=== PATIENT | male | born 1975 | race Caucasian/White ===

== ENCOUNTER 2016-07-22 14:09 | Emergency (ER) | payer MEDICAID ==
--- NOTE | 2016-07-22 15:05 | ED ---
Upper Extremity Pain - HPI Summary HPI Summary: Patient presents with left middle finger pain that began when he caught it in a latch on a door he was opening 6 days ago. 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 He denies previous injury to this finger. No N/T or skin disruption. He has taken ibuprofen for pain. - History of Current Complaint Chief Complaint: EDExtremityLower Stated Complaint: LT HAND FINGER INJURY Time Seen by Provider: 07/22/16 14:22 Hx Obtained From: Patient Mechanism Of Injury: Twisted Onset/Duration: Started Days Ago - 6, Traumatic, Still Present Timing: Constant Severity Initially: Moderate Severity Currently: Severe Pain Location: Finger - left middle Character: Sharp, Aching Aggravating Factor(s): Movement Alleviating Factor(s): Nothing Associated Signs & Symptoms: Positive: Swelling, Bruising Related History: Dominant Hand Right - Allergies/Home Medications Allergies/Adverse Reactions: Allergies Allergy/AdvReac Type Severity Reaction Status Date / Time Penicillins Allergy Unknown Verified 07/22/16 14:13 Reaction Details PMH/Surg Hx/FS Hx/Imm Hx Previously Healthy: Yes Infectious Disease History: Denies: Traveled Outside the [place] in Last 30 Days - Family History Known Family History: Positive: None - Social History Occupation: Employed Full-time Lives: With Family Alcohol Use: None Substance Use Type: Reports: None Smoking Status (MU): Light Every Day Tobacco Smoker Cessation Counseling: Patient Advised to Stop Review of Systems Positive: Arthralgia - left DIP, Myalgia, Decreased ROM, Edema Positive: Bruising Negative: Weakness, Paresthesia, Numbness All Other Systems Reviewed And Are Negative: Yes Physical Exam Triage Information Reviewed: Yes Vital Signs On Initial Exam: Initial Vitals Temp Pulse Resp BP Pulse Ox 98.1 F 80 18 155/75 99 07/22/16 14:11 07/22/16 14:11 07/22/16 14:11 07/22/16 14:11 07/22/16 14:11 Vital Signs Reviewed: Yes Appearance: Positive: Well-Appearing, Well-Nourished, Pain Distress Skin: Positive: Warm, Skin Color Reflects Adequate Perfusion, Dry, Soft Head/Face: Positive: Normal Head/Face Inspection Eyes: Positive: EOMI, PREETHI, Conjunctiva Clear ENT: Positive: Hearing grossly normal Respiratory/Lung Sounds: Positive: Breath Sounds Present Cardiovascular: Positive: RRR Musculoskeletal: Positive: Limited @ - Left DIP limited to 10 flexion due to pain, Pain @ - TTP left DIP, Edema Left - left DIP Neurological: Positive: Sensory/Motor Intact, Alert, Oriented to Person Place, Time, NV Bundle Intact Distally, Normal Gait Psychiatric: Positive: Affect/Mood Appropriate AVPU Assessment: Alert Procedures - Splinting Location: left middle phalance Pre-Made Type: volar metal foam splint Splint: volar Pre-Proc Neuro Vasc Exam: normal Post-Proc Neuro Vasc Exam: normal Diagnostics - Vital Signs Vital Signs Temp Pulse Resp BP Pulse Ox 07/22/16 14:11 98.1 F 80 18 155/75 99 - Laboratory Lab Statement: Any lab studies that have been ordered have been reviewed, and results considered in the medical decision making process. - Radiology No standard instances Xray Interpretation: Positive (See Comments) Radiology Interpretation Completed By: Radiologist - Left middle distal phalanx fracture on the proximal portion with mild displacment Course/Dx - Diagnoses Differential Diagnosis/HQI/PQRI: Positive: Arthritis, Bursitis, Fracture (Closed ), Hematoma, Laceration, Strain, Sprain Provider Diagnoses: Fracture of phalanx of left middle finger Discharge - Discharge Plan Condition: Stable Disposition: HOME Patient Education Materials: Finger Fracture (ED) Referrals: Astrid Linder NP [Primary Care Provider] - Zeynep Stephenson MD [Medical Doctor] - Additional Instructions: Wear your splint at all times to protect your fracture. Elevate your hand above your heart and use ibuprofen 600mg three times daily with meals for the next 5- 7 days to decrease swelling and pain. Call Dr. Stephenson's office, with orthopedics , for an appointment in the next 3-5 days. Return to the emergency department if symptoms worsen.
--- NOTE | 2016-07-22 15:14 | RAD ---
INDICATION: Traumatic injury left third digit COMPARISON: None TECHNIQUE: AP, lateral, and oblique views were obtained. FINDINGS: There is a distracted (2 mm), intra-articular, volar plate avulsion injury of the base of the distal phalanx. There are no other fractures. There is no current flexion deformity. There is soft tissue swelling. IMPRESSION: DORSAL PLATE AVULSION FRACTURE AT THE DIP.
== END 2016-07-22 16:16 | disposition home or self-care (01) ==
LOC: ED 14:09
DX: S62.603A Fracture of unspecified phalanx of left middle finger, initial encounter for closed fracture (principal); M79.1 Myalgia; R60.9 Edema, unspecified; F17.210 Nicotine dependence, cigarettes, uncomplicated; W23.0XXA Caught, crushed, jammed, or pinched between moving objects, initial encounter; Y93.89 Activity, other specified; Y92.9 Unspecified place or not applicable
CPT/HCPCS: 73140; 99282

== ENCOUNTER 2016-08-16 08:57 | Emergency (ER) | payer MEDICAID, OTHER ==
[2016-08-16] MEDS ORDERED: oxyCODONE/Acetamin 5/325 MG* TAB PO ONE (09:24)
[2016-08-16] MEDS ORDERED: Dexamethasone IV* 4 MG/ML 5 ML VIAL (20 MG) IVPB ONE (09:24)
[2016-08-16] MEDS ORDERED: Orphenadrine Citrate IV* 30 MG/ML 2 ML VIAL IV ONE (09:24)
--- NOTE | 2016-08-16 09:26 | ED ---
Neck Pain - HPI Summary HPI Summary: 41M presents with neck pain and left arm numbness for day. States has chronic neck pain that normally radiates to right side but he used a massage device on Tuesday and then his symptoms seemed to switch to left side. He states that his left arm feels weak. The numbness is located in his thumb, index and middle finger and goes behind elbow. He is right handed. He denies any injury to the area. He denies any chest pain or SOB. - History of Current Complaint Chief Complaint: EDBackInjuryPain Stated Complaint: BACK PAIN, LEFT HAND NUMBNESS, ELBOW PAIN Time Seen by Provider: 08/16/16 09:10 Pain Intensity: 5 - Allergies/Home Medications Allergies/Adverse Reactions: Allergies Allergy/AdvReac Type Severity Reaction Status Date / Time Penicillins Allergy Unknown Verified 07/22/16 14:13 Reaction Details PMH/Surg Hx/FS Hx/Imm Hx Cardiovascular History: Denies: Hx Hypertension Musculoskeletal History: Reports: Other Musculoskeletal History - neck pain Infectious Disease History: Denies: Traveled Outside the [place] in Last 30 Days - Family History Known Family History: Positive: None Negative: Cardiac Disease - Social History Alcohol Use: None Substance Use Type: Reports: None Smoking Status (MU): Light Every Day Tobacco Smoker Review of Systems Negative: Fever Negative: Chest Pain Negative: Shortness Of Breath Positive: Myalgia - neck pain and left arm numbness All Other Systems Reviewed And Are Negative: Yes Physical Exam Triage Information Reviewed: Yes Vital Signs On Initial Exam: Initial Vitals Temp Pulse Resp BP Pulse Ox 98.3 F 99 18 144/83 100 08/16/16 09:01 08/16/16 09:01 08/16/16 09:01 08/16/16 09:01 08/16/16 09:01 Vital Signs Reviewed: Yes Appearance: Positive: Well-Appearing Skin: Positive: Warm, Dry Head/Face: Positive: Normal Head/Face Inspection Eyes: Positive: Normal, Conjunctiva Clear Respiratory/Lung Sounds: Positive: Clear to Auscultation, Breath Sounds Present Cardiovascular: Positive: Normal, RRR Musculoskeletal: Positive: Strength/ROM Intact - of neck with pain, Other - positive spurling test, 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 - CT neck CT Interpretation: Positive (See Comments) - IMPRESSION: No fracture of the cervical spine is noted. There is endplate abnormality superior endplate of C6. This appears to be chronic and was present on prior x-ray dated December 19, 2006. At C6-C7 in the left posterior lateral aspect of the disc space there is suggestion of some high density material which may represent a disc protrusion narrowing the left foramen and impinge upon the left exiting nerve root. Correlation with MRI of cervical spine is suggested. CT Interpretation Completed By: Radiologist Re-Evaluation - Re-Evaluation First Eval Re-Evaluation Time: 22:50 Change: Improved Comment: pain improved Neck Course/Dx - Course Course Of Treatment: 41M presents with acute on chronic neck pain for 2 days. states pain is in same area but that numbness that is usually on right is now on the left and goes down to thumb, index, and middle finger. on exam has positive spurling test. did CT and shows possible herniated disk at c6-c7 which fits with where numbness is occuring. pain controlled with steriod, muscle relaxer, and percocet. will have continue steriod and muscle relaxer at home and follow up with primary as may need PT or MRI in future. patient understands and agrees with plan - Diagnoses Differential Dx/HQI/PQRI: Positive: Sprain, Strain, Other - herniated disk Provider Diagnoses: Neck pain Discharge - Discharge Plan Condition: Good Disposition: HOME Prescriptions: Methocarbamol TAB* [Robaxin TAB*] 750 mg PO TID PRN #9 tab PRN Reason: Pain Methylprednisolone [Medrol Dosepak 4 MG*] 4 mg PO .SEE VALENTIN INSTRUCTION #1 packet Patient Education Materials: Neck Pain (ED) Referrals: Astrid Linder NP [Primary Care Provider] - Additional Instructions: Follow directions on package for Medrol pack Take muscle relaxers three times a day for 3 days Use ibuprofen or Tylenol for pain every 6 hours ice/heat area, move as much as possible Follow up with primary within 5 days Return to ED if unable to ambulate or develop any new or worsening symptoms
--- NOTE | 2016-08-16 10:00 | RAD ---
Indication: Neck pain, numbness on the left side. CT of the cervical spine was obtained in the axial plane. Sagittal and coronal reconstructed images were obtained. The skull base demonstrates no evidence of fracture. Mastoid air cells are well aerated. The C1 ring is intact. Degenerative changes of the atlantoaxial joint is noted. The vertebral bodies appear normal in height. No evidence of fracture is noted. C2-C3 there is no disc protrusion. No central foraminal stenosis is noted. At C3-C4 no disc protrusion is noted. No central or foraminal stenosis is noted. At C4-C5 no central or foraminal stenosis is noted. At C5-C6 degenerative disc disease is noted. No central or foraminal stenosis is noted. Some endplate irregularity is noted at the anterior superior endplate of C6. This is likely due to degeneration. This has been present as far back as 2006. At C6-C7 there is a left posterior lateral disc protrusion which may narrow the left foramen and impinge upon the left descending nerve root and exiting nerve root MRI is suggested for further evaluation. At C7-T1 no disc protrusion is identified. IMPRESSION: No fracture of the cervical spine is noted. There is endplate abnormality superior endplate of C6. This appears to be chronic and was present on prior x-ray dated December 19, 2006. At C6-C7 in the left posterior lateral aspect of the disc space there is suggestion of some high density material which may represent a disc protrusion narrowing the left foramen and impinge upon the left exiting nerve root. Correlation with MRI of cervical spine is suggested.
[2016-08-16 10:59] VITALS: BP 138/78
== END 2016-08-16 10:58 | disposition home or self-care (01) ==
LOC: ED 08:57
DX: M54.2 Cervicalgia (principal); F17.200 Nicotine dependence, unspecified, uncomplicated
CPT/HCPCS: 72125; 96374; 96375; 99282; A9270-GY; J2360

== ENCOUNTER 2016-08-27 04:32 | Emergency (ER) | payer OTHER ==
[2016-08-27 04:50] VITALS: BP 146/85
[2016-08-27] MEDS ORDERED: oxyCODONE/Acetamin 5/325 MG* TAB PO ONE (05:11)
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
== END 2016-08-27 05:34 | disposition home or self-care (01) ==
LOC: ED 04:32
DX: M25.512 Pain in left shoulder (principal); F17.210 Nicotine dependence, cigarettes, uncomplicated
CPT/HCPCS: 99282; A9270-GY

== ENCOUNTER 2017-01-06 06:20 | Observation (INO) | payer OTHER ==
[~2017-01-06 06:20] MED LIST: Acetaminophen TAB* 325 MG PO ONE; Buffered Lidocaine 0.9% SYRIN* 5 ML/SYR SYRINGE INTRADERM ONE; Dexamethasone IV* 4 MG/ML 1 ML (4 MG) IV SLOW PU ONE; Famotidine IV* 10 MG/ML 2 ML (20 mg) IV ONE
[2017-01-06] MEDS ORDERED: Famotidine IV* 10 MG/ML 2 ML (20 mg) ONE (06:30)
[2017-01-06] MEDS ORDERED: Buffered Lidocaine 0.9% SYRIN* 5 ML/SYR SYRINGE ONE (06:30)
[2017-01-06] MEDS ORDERED: Acetaminophen TAB* 325 MG ONE (06:30)
[2017-01-06] MEDS ORDERED: Clindamycin 900 MG IVPREMIX(* 900 MG/50 ML SDV IV ONE (06:30)
[2017-01-06] MEDS ORDERED: Dexamethasone IV* 4 MG/ML 1 ML (4 MG) ONE (06:30)
[2017-01-06] MEDS ORDERED: Midazolam* 1 MG/ML 2 ML VIAL (2 MG) ONE ×2 (07:05→07:49)
[2017-01-06] MEDS ORDERED: fentaNYL* 50 MCG/ML 2 ML VIAL (100 MCG VIAL) ONE ×3 (07:05→10:05)
[2017-01-06] MEDS ORDERED: Lidocaine 2% PF * 5 ML VIAL ONE (07:06)
[2017-01-06] MEDS ORDERED: Rocuronium* 10 MG/ML VIAL ONE (07:06)
[2017-01-06] MEDS ORDERED: Lidocaine 1% MPF wEPI 200,000* 30 ML SDV ONE (07:06)
[2017-01-06] MEDS ORDERED: Bacitracin IV* 50,000 UNITS INJ ONE (07:06)
[2017-01-06] MEDS ORDERED: Thrombin 5,000 UNITS* 1 APPLIC KIT - topical use - TOPICAL ONE ×2 (07:06→09:24)
[2017-01-06] MEDS ORDERED: Propofol* 10 MG/ML 20 ML BTL IV PUSH ONE (07:06)
[2017-01-06] MEDS ORDERED: Sugammadex * 200 MG/2 ML VIAL IV PUSH ONE (07:13)
[2017-01-06] MEDS ORDERED: KETAMINE HCL* 50 MG/ML 10 ML VIAL ONE (07:49)
[2017-01-06] MEDS ORDERED: HYDROmorphone INJ* 1 MG/ML CARPUJECT SYRINGE ONE ×2 (08:04→10:39)
[2017-01-06] MEDS ORDERED: Acetaminophen IV 1GM/100ML * 1,000 MG/100 ML VIAL IVPB ONE (08:10)
[2017-01-06] MEDS ORDERED: Acetaminophen IV 1GM/100ML * 0 ML ONE (08:12)
[2017-01-06] MEDS ORDERED: Ondansetron INJ* 2 MG/ML VIAL IV PRN ×2 (08:13→09:41)
[2017-01-06] MEDS ORDERED: diPHENhydraMINE IV* 50 MG/ML 1 ml VIAL (BENADRYL) IV PRN (08:13)
[2017-01-06] MEDS ORDERED: Phenylephrine IV* 40 MCG/ML 10 ML SYRINGE ONE ×2 (08:34→09:13)
[2017-01-06] MEDS ORDERED: Glycopyrrolate IV* 0.2 MG/ML 1 ML VIAL ONE (09:27)
[2017-01-06] MEDS ORDERED: Neostigmine Methylsulfate* 2 MG/2 ML SYRINGE ONE (09:27)
[2017-01-06] MEDS ORDERED: Acetaminophen IV 1GM/100ML * 100 ML ONE (09:34)
[2017-01-06] MEDS ORDERED: Cyclobenzaprine TAB* 10 MG PO PRN (09:44)
[2017-01-06] MEDS ORDERED: LORazepam TAB(*) 1 MG PO PRN (09:44)
[2017-01-06] MEDS: fentaNYL* 50 MCG/ML 2 ML VIAL (100 MCG VIAL) IV PRN ×3 (10:07→10:25)
--- NOTE | 2017-01-06 10:21 | RAD ---
INDICATION: Left posterior cervical discectomy C6-C7. COMPARISON: Correlation is made with a prior MRI of the cervical spine from August 26, 2016. TECHNIQUE: A single crosstable lateral film of the cervical spine was obtained in the operating room. FINDINGS: The next is flexed slightly. There are surgical instruments which project posteriorly at the C6-C7 level. IMPRESSION: INTRAOPERATIVE CONTROL FILMS.
[2017-01-06] MEDS: HYDROmorphone INJ* 1 MG/ML CARPUJECT SYRINGE IV PRN ×5 (10:42→11:19)
[2017-01-06] MEDS ORDERED: Nicotine GUM* 2 MG PO PRN (12:27)
[2017-01-06] MEDS: oxyCODONE/Acetamin 5/325 MG* TAB PO PRN ×2 (12:42→18:04)
[2017-01-06] MEDS: Nicotine PATCH 21 MG/24 HR* PATCH TRANSDERM SCH (12:43)
[2017-01-06] MEDS ORDERED: Acetaminophen TAB* 325 MG PO PRN (13:30)
[2017-01-06] MEDS: Amphetamine/Dextroamph ER(NF) 10 MG CAP.ER PO SCH (17:49)
[2017-01-07] MEDS: oxyCODONE/Acetamin 5/325 MG* TAB PO PRN ×3 (00:22→08:38)
[2017-01-07] MEDS ORDERED: Nicotine Patch Removal NOTE FOLLOW UP SCH (06:00)
[2017-01-07 06:19] VITALS: BP 134/79
--- NOTE | 2017-01-07 07:39 | PN ---
Progress Note - Progress Note Date of Service: 01/07/17 SOAP: Subjective: []POD # 1 Doing well Pre op arm pain relieved Objective: []Minimal drain output Neuro intact Assessment: []Satis post op course Plan: []D/C today D/C Instructions given
[2017-01-07] MEDS: Nicotine PATCH 21 MG/24 HR* PATCH TRANSDERM SCH (08:31)
[2017-01-07] MEDS: Amphetamine/Dextroamph ER(NF) 10 MG CAP.ER PO SCH (08:36)
[2017-01-07] MEDS ORDERED: Influenza VAC *QUAD* 2017-18* 0.5 ML SYRINGE IM ONE (09:00)
[2017-01-07] MEDS ORDERED: VARENICLINE 0.5 MG PO SCH (09:00)
[2017-01-07] MEDS ORDERED: VARENICLINE 1 MG PO SCH (09:00)
--- NOTE | 2017-01-08 07:27 | DS ---
DISCHARGE SUMMARY: DATE OF ADMISSION: 01/06/17 DATE OF DISCHARGE: 01/07/17 PROVIDER: Datne Aly MD * (DICTATED BY GRACE LERMA) DISCHARGE DIAGNOSES: 1. Cervical spondylosis, C6-7 on the left. 2. Depression. 3. Anxiety. 4. Opioid dependence. SPECIAL PROCEDURE: Posterior cervical foraminotomy, C6-7 on the left. HOSPITAL COURSE: This 41-year-old male was seen in the office several months ago with a cervical radiculopathy to the left side consistent with MRI findings of cervical disk disease and spondylosis at C6-7. He failed to improve over the next several months with conservative treatment and was admitted at this time for elective surgical treatment. On the day of admission, he was taken to surgery where under general anesthesia, a left posterior cervical foraminotomy at C6-7 operation was carried out. Postoperatively, the left upper extremity pain and numbness is improving. He is ambulating independently. He was eating , drinking, and voiding without difficulty. On the first postoperative day, the CARLOS wound drain was removed and he was discharged home to the care of his family. Prior to surgery, he had transitioned from Suboxone therapy to Percocet. Postoperatively, he will be prescribed 3 days of Percocet and will transition back to Suboxone therapy. Pain was well controlled during admission with Percocet. DISCHARGE INSTRUCTIONS: Wound care and activity level were discussed with the patient and information was provided. He was also provided with education and discussion on transitioning from oral pain medication to Suboxone. FOLLOWUP: He will be seen in office in approximately 2 weeks for followup and staple removal. DISCHARGE MEDICATIONS: 1. Oxycodone/acetaminophen 5/325 mg 2 tabs by mouth every 4 hours as needed for pain. 2. Cyclobenzaprine 10 mg 1 tab by mouth up to 3 times daily for muscle spasms. GRACE LERMA [id number]/[facility] #: [id number] MTDD
--- NOTE | 2017-01-10 09:32 | OP ---
DATE OF OPERATION: 01/06/17 - ROOM #352 DATE OF : 77. SURGEON: Dante Aly MD. WINE MAKER: GRACE Sharma. ANESTHESIA: General. PRE-OP DIAGNOSIS: Herniated nucleus pulposus, C6-7 on the left. POST-OP DIAGNOSIS: Cervical spondylosis at C6-7 on the left. OPERATIVE PROCEDURE: Posterior cervical foraminotomies, C6-7 on the left with microdissection. DESCRIPTION OF PROCEDURE: After satisfactory general anesthesia was obtained, the patient was placed on the operating table in a prone position with the chest supported on the chest rolls and the head maintained with slight neck flexed, we utilized Tucker headrest. The posterior cervical region was then clipped, prepped, and draped in a sterile manner for posterior cervical exposure and a skin incision outlined from C6-C7. This incision was infiltrated with 1% Xylocaine with epinephrine, after which it was turned down sharply to the cervical fascia. An intraoperative x-ray was obtained verifying localization of the C6 spinous process. The fascia was divided and the paraspinal muscle stripped away from the C6-7 level and a self-retaining retractor was placed to facilitate exposure. A partial hemilaminectomy was then carried out by removing the inferior aspect of the C6 lamina and the superior aspect of the C7 lamina, as well as a portion of the medial facet complex. This was done with Kerrison rongeurs. At this point in the procedure , the operating microscope was brought into the field and the remainder of the procedure was done under microscopic visualization. Projecting beneath the C7 nerve root was noted to be heaped up material which was quite firm. Multiple attempts were made to deliver any soft disk fragments, but none were noted. It was felt that the pathology was primarily a spurred disk complex that became somewhat calcified. A generous foraminotomy was carried out over the C7 nerve root such that it was free in its course. Hemostasis was obtained with temporary Gelfoam and after assuring adequate hemostasis, the wound was thoroughly irrigated, after which a piece of Gelfoam was placed over the laminectomy defects. A drain was placed in the epidural space and tunneled out toward the left side. The fascia was then reapproximated with 0 Vicryl suture. The subcutaneous tissue was closed with 3-0 Vicryl suture and the skin was closed with skin clips. The estimated blood loss was less than 50 mL and the final sponge, padding, and needle counts were correct. The patient was taken to the recovery room, extubated and in stable condition. [id number]/[facility] #: [id number] MTDBeth
== END 2017-01-07 10:10 | disposition home or self-care (01) ==
LOC: OR 06:20 → SSU 09:41
PROVIDERS: ADMIT Neurological Surgery; ATTEND Neurological Surgery
PROC: 01N10ZZ Release Cervical Nerve, Open Approach (ICD-10-PCS; 2017-01-06)
PROC: 0RB30ZZ Excision of Cervical Vertebral Disc, Open Approach (ICD-10-PCS; principal; 2017-01-06 07:45)
DX: M50.123 Cervical disc disorder at C6-C7 level with radiculopathy (principal); F11.20 Opioid dependence, uncomplicated; F32.9 Major depressive disorder, single episode, unspecified; F41.9 Anxiety disorder, unspecified; Z88.0 Allergy status to penicillin; F17.210 Nicotine dependence, cigarettes, uncomplicated
CPT/HCPCS: 72020; 96374; 96375; 96376; A9270-GY; G0378; J1100; J1170; J2001; J2250; J2405; J2704; J3010

== ENCOUNTER 2017-06-13 08:11 | Emergency (ER) | payer OTHER ==
[2017-06-13] MEDS ORDERED: Ketorolac INJ* 30 MG/ML 1 ML VIAL IM ONE (10:19)
--- NOTE | 2017-06-13 10:21 | ED ---
Upper Extremity Pain - HPI Summary HPI Summary: 42 male presents to ED with complaints of bilateral hand edema that began 3 days ago, worsened yesterday and this morning. Patient states he has chronic bilateral elbow pain that he believes is tendonitis. Has been wearing braces for the 8-9 months. Wears them even when he sleeps. Denies any other joint pain/ aches or swelling. No rash or discoloration. No fever/chills. No other complaints. No PMHx. 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 No known tick bites, rashes or other abnormal findings. Does have chronic neck pain/had surgery over last summer. Has not had recent issues with neck however. Has chronic paresthesia bilateral nothing new or significant. Denies numbness. Hands are stiff rather than painful, unable to garageman due to swelling that has worsened over the past few days. Has been elevating at times and took ibuprofen with last dose being around 630am today, 600mg. nothing since. No recent trauma or injury, old right hand trauma. - History of Current Complaint Chief Complaint: EDExtremityUpper Stated Complaint: WRIST/ARM SWELLING Time Seen by Provider: 06/13/17 08:48 Hx Obtained From: Patient Mechanism Of Injury: Unknown, Other - none Onset/Duration: Started Days Ago, Started Weeks Ago - "months ago chronic bilateral elbow pain", Still Present, Worse Since Timing: Constant Severity Initially: Mild Severity Currently: Mild Pain Location: Hand - bilateral Character: Aching, Stiffness Aggravating Factor(s): Nothing Alleviating Factor(s): Nothing Associated Signs & Symptoms: Positive: Swelling, Numbness/Tingling - chronic. Negative: Weakness, Neck Pain, Nausea, Vomiting Related History: Dominant Hand Right - Allergies/Home Medications Allergies/Adverse Reactions: Allergies Allergy/AdvReac Type Severity Reaction Status Date / Time Penicillins Allergy Unknown Verified 06/13/17 09:09 Reaction Details Home Medications: Home Medications Amphetamine MIXED SALT TAB* [Adderall TAB*] 20 mg PO DAILY 06/13/17 [History Confirmed 06/13/17] PMH/Surg Hx/FS Hx/Imm Hx Endocrine/Hematology History: Denies: Hx Diabetes Cardiovascular History: Denies: Hx Hypertension, Hx Pacemaker/ICD Respiratory History: Denies: Hx Asthma Musculoskeletal History: Reports: Other Musculoskeletal History - neck pain Sensory History: Denies: Hx Contacts or Glasses, Hx Hearing Aid Opthamlomology History: Denies: Hx Contacts or Glasses Psychiatric History: Reports: Hx Anxiety - on meds pt. states controlled, Hx Depression Denies: Hx Panic Disorder - Surgical History Surgery Procedure, Year, and Place: HERNIA - A BABY. THORACIC & LUMBAR - FOR FX - IN [facility] 2006 [facility] [place] Hx Anesthesia Reactions: No - Immunization History Date of Tetanus Vaccine: UTD Date of Influenza Vaccine: none Immunizations Up to Date: Yes Infectious Disease History: No Infectious Disease History: Denies: Traveled Outside the [place] in Last 30 Days - Family History Known Family History: Positive: None Negative: Cardiac Disease - Social History Alcohol Use: Occasionally Alcohol Amount: BEER X 3-4 twice a week Substance Use Type: Reports: None Substance Use Comment - Amount & Last Used: HX IV heroin abuse - 10 years clean Smoking Status (MU): Light Every Day Tobacco Smoker Review of Systems Constitutional: Negative Cardiovascular: Negative Respiratory: Negative Positive: Arthralgia - bilateral elbows, chronic , Myalgia, Edema - bilateral hands Positive: Paresthesia - chronic, intermittent b/l fingers All Other Systems Reviewed And Are Negative: Yes Physical Exam Triage Information Reviewed: Yes Vital Signs On Initial Exam: Initial Vitals Temp Pulse Resp BP Pulse Ox 98.2 F 92 16 138/74 100 06/13/17 08:15 06/13/17 08:15 06/13/17 08:15 06/13/17 08:15 06/13/17 08:15 Vital Signs Reviewed: Yes Appearance: Positive: Well-Appearing, No Pain Distress, Well-Nourished Skin: Positive: Warm, Skin Color Reflects Adequate Perfusion, Dry, Other - normal skin exam. Negative: Cold, Numb, Cyanosis @, Erythema @ Head/Face: Positive: Normal Head/Face Inspection Eyes: Positive: Conjunctiva Clear ENT: Positive: Pharynx normal Neck: Positive: Supple, Nontender Respiratory/Lung Sounds: Positive: Clear to Auscultation, Breath Sounds Present. Negative: Rales, Rhonchi, Wheezes Cardiovascular: Positive: Normal, RRR, Pulses are Symmetrical in both Upper and Lower Extremities - 2+ radial b/l. Negative: Murmur, Rub Musculoskeletal: Positive: Normal, Strength/ROM Intact - limited only due to swelling, Pain @ - minmal bilateral hands, elbows with movement, Edema Left - hand moderate, Edema Right - hand moderate, including fingers, Other - no crepitus, step off, deformity or other signs of trauma. no erythema or ecchymosis. negative tinel and phalen. Negative: Interruption @ Neurological: Positive: Normal, Sensory/Motor Intact, Alert, Oriented to Person Place, Time, CN Intact II-III, NV Bundle Intact Distally, Normal Gait Diagnostics - Vital Signs Vital Signs Temp Pulse Resp BP Pulse Ox 06/13/17 10:01 98.7 F 06/13/17 10:00 86 98 06/13/17 09:44 87 98 06/13/17 09:43 145/83 06/13/17 08:15 98.2 F 92 16 138/74 100 - Laboratory Lab Statement: Any lab studies that have been ordered have been reviewed, and results considered in the medical decision making process. - Radiology elbow b/l Xray Interpretation: No Acute Changes - NO EVIDENCE FOR LEFT ELBOW FRACTURE.No fracture of the right elbow is noted. Radiology Interpretation Completed By: Radiologist hand b/l Xray Interpretation: No Acute Changes - Degenerative changes of the distal interphalangeal joint of the third digit. No fracture is noted.No fractures identified. Deformity of the fourth and fifth metacarpals from prior injury. Radiology Interpretation Completed By: Radiologist Re-Evaluation - Re-Evaluation First Eval Re-Evaluation Time: 11:45 Change: Unchanged - toradol helped, swelling still present. evaluated by Dr Prado, updated on imaging results Course/Dx - Course Course Of Treatment: xrays of bilteral elbows and hands obtained and negative besides chronic/old deformity/injuries and degenerative changes. Given toradol. Appears to be suffering from bilteral hand edema probably from elbow braces being on 15/11 for the past few months and slightly to tight to compensate for chronic bilateral elbow tendonitis. Recommend strict RICE and anti-inflammatory along with removing elbow braces for the next few days. Aware of worsening signs and symptoms to watch out for. No other concerns at this time. Dr Prado also evaluated patient and agree. Patient agrees and understands plan. Continue NSAIDs. Lyme titer obtained although no risk factors or history. Follow up with PCP within 1 week for recheck. Follow up for chronic elbow pain for further evaluation. - Diagnoses Differential Diagnosis/HQI/PQRI: Positive: Strain, Other - tendonitis, bilateral hand edema Provider Diagnoses: Hand edema, Bilateral elbow joint pain, Tendonitis of both elbows - Physician Notifications Discussed Care of Patient With: Dr Prado Time Discussed With Above Provider: 11:30 Discharge - Discharge Plan Condition: Stable Disposition: HOME Prescriptions: Naproxen TAB* [Naprosyn 375 mg TAB*] 375 mg PO Q8H #10 tab Patient Education Materials: Tendinitis (ED), Edema (ED) Referrals: Astrid Linder NP [Primary Care Provider] - Additional Instructions: Take prescribed medication to help with pain and inflammation as directed. Take with food. Strict elevation, icing and keep elbow braces removed for the next couple of days 3-5. Follow up with PCP. Any new or worsening symptoms, as discussed, please return/seek medical attention promptly. You will hear about lyme results IF positive within the next week.
--- NOTE | 2017-06-13 11:18 | RAD ---
Indication: Right hand injury. 4 views of the right hand demonstrates deformity of the fifth metacarpal and fourth metacarpal. No fracture is identified. IMPRESSION: No fractures identified. Deformity of the fourth and fifth metacarpals from prior injury.
--- NOTE | 2017-06-13 11:22 | RAD ---
INDICATION: Left elbow injury. TECHNIQUE: 4 views of the left elbow were obtained. FINDINGS: The bones are in normal alignment. No joint effusion or fracture is seen. Joint spaces appear maintained. There is a small bony exostosis arising from the medial anterior aspect of the distal humerus. IMPRESSION: NO EVIDENCE FOR FRACTURE.
[2017-06-13 12:25] VITALS: BP 112/74
--- NOTE | 2017-06-13 12:29 | RAD ---
Indication: Right hand injury. 4 views of the right hand demonstrates no fracture. Degenerative changes of the distal interphalangeal joint of the third digit is noted. Accessory ossicle is noted adjacent to the ulnar styloid process. IMPRESSION: Degenerative changes of the distal interphalangeal joint of the third digit. No fracture is noted.
--- NOTE | 2017-06-13 12:30 | RAD ---
Indication: Right elbow swelling. 4 views of the right elbow demonstrates no fracture. No joint effusion is identified. IMPRESSION: No fracture of the right elbow is noted.
== END 2017-06-13 12:23 | disposition home or self-care (01) ==
LOC: ED 08:11
DX: R60.9 Edema, unspecified (principal); M25.522 Pain in left elbow; M25.521 Pain in right elbow; M77.9 Enthesopathy, unspecified; Z88.0 Allergy status to penicillin; F17.200 Nicotine dependence, unspecified, uncomplicated
CPT/HCPCS: 86618; 96372; 99283; J1885

== ENCOUNTER 2018-05-26 23:04 | Emergency (ER) | payer OTHER ==
[2018-05-26] MEDS ORDERED: Clindamycin CAP* 150 MG PO ONE (23:59)
--- NOTE | 2018-05-27 00:01 | ED ---
Throat Pain/Nasal Congestion - HPI Summary HPI Summary: 43 year old male presents with dental pain for the past couple days. He states located on this left upper jaw. States it radiates to his ear. Denies any pain with eye movement. He states the area feels swollen. He has been taking ibuprofen for pain which has been helping. Denies any sore throat nausea vomiting chest pain or shortness of breath. Has a history of recurrent dental infections in this area but has not followed up with a dentist yet. - History of Current Complaint Chief Complaint: EDDentalPain Time Seen by Provider: 05/26/18 23:50 - Allergies/Home Medications Allergies/Adverse Reactions: Allergies Allergy/AdvReac Type Severity Reaction Status Date / Time Penicillins Allergy Unknown Verified 05/26/18 23:11 Reaction Details PMH/Surg Hx/FS Hx/Imm Hx Endocrine/Hematology History: Denies: Hx Diabetes Cardiovascular History: Denies: Hx Hypertension, Hx Pacemaker/ICD Respiratory History: Denies: Hx Asthma Musculoskeletal History: Reports: Other Musculoskeletal History - neck pain Sensory History: Denies: Hx Contacts or Glasses, Hx Hearing Aid Opthamlomology History: Denies: Hx Contacts or Glasses Psychiatric History: Reports: Hx Anxiety - on meds pt. states controlled, Hx Depression Denies: Hx Panic Disorder - Surgical History Surgery Procedure, Year, and Place: HERNIA - A BABY. THORACIC & LUMBAR - FOR FX - IN [facility] [place] [facility] [place] Anesthesia Reactions: No - Immunization History Date of Tetanus Vaccine: UTD Date of Influenza Vaccine: none Infectious Disease History: Yes Infectious Disease History: Denies: Traveled Outside the [place] in Last 30 Days - Family History Known Family History: Positive: None Negative: Cardiac Disease - Social History Alcohol Use: Occasionally Alcohol Amount: BEER X 3-4 twice a week Substance Use Type: Reports: None Substance Use Comment - Amount & Last Used: HX IV heroin abuse - 10 years clean Smoking Status (MU): Light Every Day Tobacco Smoker Review of Systems Negative: Fever Positive: Dental Pain Negative: Chest Pain Negative: Shortness Of Breath All Other Systems Reviewed And Are Negative: Yes Physical Exam Triage Information Reviewed: Yes Vital Signs On Initial Exam: Initial Vitals Temp Pulse Resp BP Pulse Ox 97.2 F 88 16 161/97 98 05/26/18 23:05 05/26/18 23:05 05/26/18 23:05 05/26/18 23:05 05/26/18 23:05 Vital Signs Reviewed: Yes Appearance: Positive: Well-Appearing Skin: Positive: Warm, Dry Head/Face: Positive: Normal Head/Face Inspection Eyes: Positive: Normal, EOMI, PREETHI, Conjunctiva Clear ENT: Positive: Normal ENT inspection, Pharynx normal, TMs normal Dental: Positive: Percussion Tenderness @ - 3, Gross Decay/Caries @ - 3 with erythema. Negative: Abscess @ Neck: Positive: Supple, Nontender, No Lymphadenopathy Respiratory/Lung Sounds: Positive: Clear to Auscultation, Breath Sounds Present Cardiovascular: Positive: Normal, RRR Abdomen Description: Positive: Nontender, Soft Bowel Sounds: Positive: Present Musculoskeletal: Positive: Normal Neurological: Positive: Normal Psychiatric: Positive: Normal Diagnostics - Vital Signs Vital Signs Temp Pulse Resp BP Pulse Ox 05/26/18 23:05 97.2 F 88 16 161/97 98 - Laboratory Lab Statement: Any lab studies that have been ordered have been reviewed, and results considered in the medical decision making process. EENT Course/Dx - Course Course Of Treatment: 43 year old male presents with dental pain for the past couple days. He states located on this left upper jaw. States it radiates to his ear. Denies any pain with eye movement. He states the area feels swollen. He has been taking ibuprofen for pain which has been helping. Denies any sore throat nausea vomiting chest pain or shortness of breath. Has a history of recurrent dental infections in this area but has not followed up with a dentist yet. On exam tenderness over tooth 3 with erythema around the tooth. Will start on clindamycin. Told to follow up with dentist for further care. Patient understands agrees with plan. - Differential Diagnoses Differential Diagnoses: Dental Abscess, Dental Caries, Fractured Tooth - Diagnoses Provider Diagnoses: Dental infection Discharge - Sign-Out/Discharge Documenting (check all that apply): Patient Departure Patient Received Moderate/Deep Sedation with Procedure: No - Discharge Plan Condition: Good Disposition: HOME Prescriptions: Clindamycin Cap(NF) [Clindamycin Cap 300 mg Cap(NF)] 300 mg PO TID #20 cap Patient Education Materials: Dental Abscess (ED) Referrals: Makayla Sweet MD [Primary Care Provider] - Additional Instructions: Take clindamycin three times a day for 7 days Take ibuprofen every 6 hours for pain as needed Avoid hard, crunchy food until seen by dentist Return to ED if develop fever, shortness of breath, pain with eye movement or swelling around eye Establish care dentist as soon as possible - Billing Disposition and Condition Condition: GOOD Disposition: Home Images - Images Dental: 1 - broken tooth with erythema
[2018-05-27 00:22] VITALS: BP 124/88
== END 2018-05-27 00:16 | disposition home or self-care (01) ==
LOC: ED 23:04
DX: K04.7 Periapical abscess without sinus (principal); K02.9 Dental caries, unspecified; F41.9 Anxiety disorder, unspecified; Z88.0 Allergy status to penicillin; F17.200 Nicotine dependence, unspecified, uncomplicated
CPT/HCPCS: 99282; A9270-GY

== ENCOUNTER 2018-07-14 09:20 | Emergency (ER) | payer OTHER ==
[2018-07-14 10:35] VITALS: BP 132/81
--- NOTE | 2018-07-14 10:53 | ED ---
Laceration/Wound HPI - HPI Summary HPI Summary: Patient is a 43-year-old male presenting to the ED with a laceration to the left hand. The laceration occurred last evening at 5:30 PM while cutting a piece of steel. Tetanus UTD as of 2 yrs ago. Denies pain at this time. Bleeding is well controlled. Denies any N/T to the fingertips. Denies other injuries. - History of Current Complaint Stated Complaint: LEFT HAND LACERATION PER PT Time Seen by Provider: 07/14/18 09:35 Hx Obtained From: Patient Mechanism of Injury: Sharp/Blunt Trauma Onset/Duration: Sudden Onset Aggravating: Movement Alleviating: Compression Timing: Constant Onset Severity: Mild Current Severity: Mild Pain Intensity: 0 Pain Scale Used: 0-10 Numeric Associated Signs & Symptoms: Negative Related Hx: Dominant Hand (Right) - Additional Pertinent History Primary Care Physician: [id number] Oxygen Devices Used Prior to Hospitalization: None Recent Stress Test: No Have you ever had this problem before: No - Allergy/Home Medications Allergies/Adverse Reactions: Allergies Allergy/AdvReac Type Severity Reaction Status Date / Time Penicillins Allergy Unknown Verified 07/14/18 09:37 Reaction Details PMH/Surg Hx/FS Hx/Imm Hx Previously Healthy: Yes Endocrine/Hematology History: Denies: Hx Diabetes Cardiovascular History: Denies: Hx Hypertension, Hx Pacemaker/ICD Respiratory History: Denies: Hx Asthma Musculoskeletal History: Reports: Other Musculoskeletal History - neck pain Sensory History: Denies: Hx Contacts or Glasses, Hx Hearing Aid Opthamlomology History: Denies: Hx Contacts or Glasses Psychiatric History: Reports: Hx Anxiety - on meds pt. states controlled, Hx Depression Denies: Hx Panic Disorder - Surgical History Surgery Procedure, Year, and Place: HERNIA - A BABY. THORACIC & LUMBAR - FOR FX - IN [facility] 2006 [facility] [place] Hx Anesthesia Reactions: No - Immunization History Date of Tetanus Vaccine: UTD Date of Influenza Vaccine: none Hx Pertussis Vaccination: No Immunizations Up to Date: Yes Infectious Disease History: No Infectious Disease History: Denies: Traveled Outside the [place] in Last 30 Days - Family History Known Family History: Positive: None Negative: Cardiac Disease - Social History Occupation: Employed Full-time Lives: With Family Alcohol Use: Occasionally Alcohol Amount: BEER X 3-4 twice a week Hx Substance Use: No Substance Use Type: Reports: None Substance Use Comment - Amount & Last Used: HX IV heroin abuse - 11 years clean Hx Tobacco Use: Yes Smoking Status (MU): Heavy Every Day Tobacco Smoker Review of Systems Constitutional: Negative Negative: Fever, Chills, Skin Diaphoresis Negative: Palpitations, Chest Pain Genitourinary: Negative Positive: no symptoms reported, see HPI Negative: Arthralgia, Myalgia Skin: Negative Positive: Other - laceration to the dorsum of the hand Neurological: Negative All Other Systems Reviewed And Are Negative: Yes Physical Exam Triage Information Reviewed: Yes Vital Signs On Initial Exam: Initial Vitals Temp Pulse Resp BP Pulse Ox 98.2 F 81 18 133/98 98 07/14/18 09:31 07/14/18 09:31 07/14/18 09:31 07/14/18 09:31 07/14/18 09:31 Vital Signs Reviewed: Yes Appearance: Positive: Well-Appearing, Well-Nourished Skin: Positive: Warm, Skin Color Reflects Adequate Perfusion, Other - laceration to the dorsum of the hand Head/Face: Positive: Normal Head/Face Inspection Eyes: Positive: EOMI, PREETHI, Conjunctiva Clear Neck: Positive: Supple, No Lymphadenopathy Respiratory/Lung Sounds: Positive: Clear to Auscultation, Breath Sounds Present Cardiovascular: Positive: RRR, Pulses are Symmetrical in both Upper and Lower Extremities Musculoskeletal: Positive: Strength/ROM Intact Neurological: Positive: Speech Normal Psychiatric: Positive: Affect/Mood Appropriate AVPU Assessment: Alert Procedures - Laceration/Wound Repair 1 Location: upper extremity Description: Irregular Anesthesia: 1.0% Length, Depth and Shape: 2cm, irregular Betadine Prep?: No Irrigated w/ Saline (ccs): 40 Laceration/Wound Explored: clean Closure: Skin Adhesive, SteriStrips Layer Closure?: No Sterile Dressing Applied?: No Diagnostics - Vital Signs Vital Signs Temp Pulse Resp BP Pulse Ox 07/14/18 10:34 98.2 F 84 18 132/81 97 07/14/18 09:31 98.2 F 81 18 133/98 98 - Laboratory Lab Statement: Any lab studies that have been ordered have been reviewed, and results considered in the medical decision making process. Laceration Repair Course/Dx - Course Course Of Treatment: Patient is evaluated for 2 cm laceration to the dorsum of the left hand. This is superficial. This occurred approximately 5:30 PM last evening, approximately 16 hours ago. Cleansed wound thoroughly with normal saline. Adhesive applied, 3 Steri-Strips applied. Patient will keep the area covered x 3 days. - Clinical Impression Provider Diagnoses: Laceration Discharge - Sign-Out/Discharge Documenting (check all that apply): Patient Departure Patient Received Moderate/Deep Sedation with Procedure: No - Discharge Plan Condition: Stable Disposition: HOME Patient Education Materials: Melody (ED) Referrals: Makayla Sweet MD [Primary Care Provider] - Additional Instructions: Keep the steri strips in place x 3-4 days Keep the hand wrapped - Billing Disposition and Condition Condition: STABLE Disposition: Home
== END 2018-07-14 10:34 | disposition home or self-care (01) ==
LOC: ED 09:20
DX: S61.412A Laceration without foreign body of left hand, initial encounter (principal); W45.8XXA Other foreign body or object entering through skin, initial encounter; Y92.9 Unspecified place or not applicable; F41.9 Anxiety disorder, unspecified; Z88.0 Allergy status to penicillin; F17.200 Nicotine dependence, unspecified, uncomplicated
CPT/HCPCS: 12001; 99282

== ENCOUNTER → 2018-08-18 10:47 | Emergency (ER) | payer OTHER ==
[2018-08-18 11:05] VITALS: BP 150/90
--- NOTE | 2018-08-18 11:24 | ED ---
Upper Extremity Pain - HPI Summary HPI Summary: Patient is a 43-year-old male who presents emergency department for evaluation of a right crush injury to his arm. 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 No other injuries were sustained. Patient complains of pain to right elbow and forearm as well as intermittent paresthesias to right arm. Symptoms are mild to moderate in severity. Movement makes symptoms worse. Rest makes symptoms better. Patient took ibuprofen prior to arrival which is improving pain. No past medical history. - History of Current Complaint Chief Complaint: EDExtremityUpper Stated Complaint: WRIST INJURY PER PT Time Seen by Provider: 08/18/18 11:20 Hx Obtained From: Patient - Allergies/Home Medications Allergies/Adverse Reactions: Allergies Allergy/AdvReac Type Severity Reaction Status Date / Time Penicillins Allergy Unknown Verified 08/18/18 11:05 Reaction Details PMH/Surg Hx/FS Hx/Imm Hx Previously Healthy: Yes Endocrine/Hematology History: Denies: Hx Diabetes Cardiovascular History: Denies: Hx Hypertension, Hx Pacemaker/ICD Respiratory History: Denies: Hx Asthma Musculoskeletal History: Reports: Other Musculoskeletal History - neck pain Sensory History: Denies: Hx Contacts or Glasses, Hx Hearing Aid Opthamlomology History: Denies: Hx Contacts or Glasses Psychiatric History: Reports: Hx Anxiety - on meds pt. states controlled, Hx Depression Denies: Hx Panic Disorder - Surgical History Surgery Procedure, Year, and Place: HERNIA - A BABY. THORACIC & LUMBAR - FOR FX - IN [facility] 2006 [facility] [place] Hx Anesthesia Reactions: No - Immunization History Date of Tetanus Vaccine: UTD Date of Influenza Vaccine: none Infectious Disease History: No Infectious Disease History: Denies: Traveled Outside the [place] in Last 30 Days - Family History Known Family History: Positive: None, Non-Contributory Negative: Cardiac Disease - Social History Occupation: Employed Full-time Lives: With Family Alcohol Use: Occasionally Alcohol Amount: BEER X 3-4 twice a week Hx Substance Use: No Substance Use Type: Reports: None Substance Use Comment - Amount & Last Used: HX IV heroin abuse - 11 years clean Hx Tobacco Use: Yes Smoking Status (MU): Heavy Every Day Tobacco Smoker Review of Systems Cardiovascular: Negative Respiratory: Negative Gastrointestinal: Negative Positive: Other - right arm pain Skin: Negative Positive: Paresthesia. Negative: Weakness, Numbness All Other Systems Reviewed And Are Negative: Yes Physical Exam Triage Information Reviewed: Yes Vital Signs On Initial Exam: Initial Vitals Temp Pulse Resp BP Pulse Ox 98.6 F 95 16 150/90 98 08/18/18 11:00 08/18/18 11:00 08/18/18 11:00 08/18/18 11:00 08/18/18 11:00 Vital Signs Reviewed: Yes Appearance: Positive: Well-Appearing - Pt. sitting on bed in NAD Skin: Positive: Warm, Dry Head/Face: Positive: Normal Head/Face Inspection Eyes: Positive: Normal, EOMI Neck: Positive: Supple Musculoskeletal: Positive: Other - Mild soft tissue swelling to right forearm. A few minor superficial abrasion. Pain with palpation and rotation at elbow. No wrist or hand pain .Good radial pulse. Compartments are soft. Neurological: Positive: Normal, CN Intact II-III Psychiatric: Positive: Affect/Mood Appropriate Diagnostics - Vital Signs Vital Signs Temp Pulse Resp BP Pulse Ox 08/18/18 11:00 98.6 F 95 16 150/90 98 - Laboratory Lab Statement: Any lab studies that have been ordered have been reviewed, and results considered in the medical decision making process. Course/Dx - Course Course Of Treatment: Patient presenting for evaluation of a crush injury to his right arm. He is neurovascularly intact. No sensory deficits. No evidence of compartment syndrome. X-rays were ordered to rule out fracture. After I initially evaluated patient, he eloped from the ER. No x-rays were obtained. - Diagnoses Differential Diagnosis/HQI/PQRI: Positive: Fracture (Closed), Strain, Sprain Provider Diagnoses: Crush injury of arm Discharge - Sign-Out/Discharge Documenting (check all that apply): Patient Departure Patient Received Moderate/Deep Sedation with Procedure: No - Discharge Plan Condition: Stable Disposition: ELOPEMENT Referrals: Makayla Sweet MD [Primary Care Provider] - - Billing Disposition and Condition Condition: STABLE Disposition: Elopement
== END | disposition home or self-care (01) ==
LOC: ED 10:47
DX: S57.81XA Crushing injury of right forearm, initial encounter (principal); W22.8XXA Striking against or struck by other objects, initial encounter; Y92.63 Factory as the place of occurrence of the external cause; Y99.0 Civilian activity done for income or pay; Z88.0 Allergy status to penicillin; F41.9 Anxiety disorder, unspecified; Z72.0 Tobacco use; Z53.21 Procedure and treatment not carried out due to patient leaving prior to being seen by health care provider
CPT/HCPCS: 99282

== ENCOUNTER 2019-03-13 20:22 | Emergency (ER) | payer OTHER ==
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
[2019-03-13 21:39] VITALS: BP 0/0
--- NOTE | 2019-03-14 07:52 | ED ---
Imaging and Labs Follow Up Follow Up Type: Imaging Imaging Result: IMPRESSION: EQUIVOCAL LUCENCY ALONG THE LATERAL HEAD OF THE FIFTH PROXIMAL PHALANX. CORRELATE WITH POINT TENDERNESS. Patient Communication/Plan: called and left vm of potential fracture. explained to fam tape area and weight bear as tolerated Provider Diagnoses: Foot sprain
== END 2019-03-13 21:38 | disposition home or self-care (01) ==
LOC: ED 20:22
DX: S93.602A Unspecified sprain of left foot, initial encounter (principal); X58.XXXA Exposure to other specified factors, initial encounter; Y92.9 Unspecified place or not applicable; F41.9 Anxiety disorder, unspecified; F32.9 Major depressive disorder, single episode, unspecified; F17.200 Nicotine dependence, unspecified, uncomplicated; Z79.899 Other long term (current) drug therapy; Z88.0 Allergy status to penicillin
CPT/HCPCS: 99282

== ENCOUNTER 2020-06-03 10:34 | Inpatient (IN) ==
[2020-06-03] MEDS ORDERED: Ondansetron 4 mg VIAL 2 MG/ML 2 ml VIAL IV ONE (10:46)
[2020-06-03] MEDS ORDERED: NS 0.9% 1000 ml BAG 1,000 ML IV ONE (10:46)
[2020-06-03] MEDS ORDERED: Famotidine IV 10 MG/ML 2 ml VIAL (20 mg) IV SLOW PU ONE (10:47)
[2020-06-03] MEDS ORDERED: Thiamine 100 MG/ML 2 ml VIAL 100 MG, Folic Acid 1 MG, Multiple Vitamin IV ADULT 10 ML i... IV ONE (10:47)
[2020-06-03 11:24] LABS: ABS Basophils 0.1 10^3/ul (0-0.2); ABS Eosinophils 0.1 10^3/ul (0-0.6); ABS Lymphocytes 1.2 10^3/ul (1.0-4.8); ABS Monocytes 0.5 10^3/ul (0-0.8); ABS Neutrophils 3.1 10^3/ul (1.5-7.7); Eosinophil % 2.4 %; Hematocrit 41 % (42-52); Hemoglobin 14.5 g/dL (14.0-18.0); Lymphocyte % 24.3 %; Mean Corpuscular HGB Conc 35 g/dL (31-36); Mean Corpuscular Hemoglobin 33 pg (27-31); Mean Corpuscular Volume 94 fL (80-94); Mean Platelet Volume 7.1 fL (7.4-10.4); Platelet Count 245 10^3/uL (150-450); Red Blood Count 4.35 10^6 /uL (4.18-5.48); Red Cell Distribution Width 14 % (10-15)
[2020-06-03 11:44] LABS: ALT 56 U/L (7-52); AST 73 U/L (13-39); Albumin 4.5 g/dL (3.2-5.2); Albumin/Globulin Ratio 1.5 (1-3); Alkaline Phosphatase 84 U/L (34-104); Anion Gap 9 mmol/L (2-11); BUN/Creatinine Ratio 16.2 (8-20); Blood Urea Nitrogen 12 mg/dL (6-24); CO2 Carbon Dioxide 27 mmol/L (22-32); Calcium 9.3 mg/dL (8.6-10.3); Chloride 100 mmol/L (101-111); EGFR Non-African American 114.9 (>60); Globulin 3.1 g/dL (2-4); Glucose 106 mg/dL (70-100); Lipase 233 U/L (11.0-82.0); Magnesium 1.7 mg/dL (1.9-2.7); Potassium 3.8 mmol/L (3.5-5.0); Sodium 136 mmol/L (135-145); Total Protein 7.6 g/dL (6.4-8.9)
[2020-06-03] MEDS ORDERED: Magnesium Sulfate 2 gm BAG 2 GM/50 ML BAG IVPB ONE (11:53)
[2020-06-03 12:26] LABS: Alcohol, S < 10 mg/dL (<10)
[2020-06-03 12:57] LABS: Urine Appearance Clear; Urine Bilirubin Negative (Negative); Urine Blood Negative (Negative); Urine Color Yellow; Urine Glucose Negative (Negative); Urine Ketones Trace (Negative); Urine Nitrite Negative (Negative); Urine Protein 1+(30 mg/dL) (Negative); Urine Specific Gravity 1.025 (1.010-1.030); Urine Urobilinogen Negative (Negative)
[2020-06-03] MEDS ORDERED: Morphine 4 MG/ML VIAL (1 ml) IV ONE (13:05)
[2020-06-03 13:17] LABS: Urine Bacteria Absent (Absent); Urine Red Blood Cell Trace(0-2/hpf) (Absent); Urine Squamous Epithelial Cell Present (Absent); Urine White Blood Cell Trace(0-5/hpf) (Absent)
[2020-06-03] MEDS ORDERED: NS 0.9% 1000 ml BAG 1,000 ML IV SCH (15:00)
[2020-06-03] MEDS ORDERED: Ondansetron 4 mg VIAL 2 MG/ML 2 ml VIAL IV PRN (15:35)
[2020-06-03] MEDS ORDERED: Nicotine PATCH 14 MG/24 HR PATCH TRANSDERM ONE (16:00)
[2020-06-03] MEDS: Lactated Ringers 1000 ml BAG 1,000 ML IV SCH (17:21)
[2020-06-03] MEDS ORDERED: Morphine 2 MG/ML SYRINGE IV PRN (20:37)
[2020-06-03] MEDS ORDERED: Famotidine IV 10 MG/ML 2 ml VIAL (20 mg) IV SLOW PU SCH (21:00)
[2020-06-03] MEDS: Buprenorp/Nalox 8-2 MG FILM SL FILM SCH (21:04)
[2020-06-04 05:37] LABS: ABS Eosinophils 0.1 10^3/ul (0-0.6); ABS Lymphocytes 1.3 10^3/ul (1.0-4.8); ABS Monocytes 0.4 10^3/ul (0-0.8); Eosinophil % 3.7 %; Hematocrit 39 % (42-52); Lymphocyte % 33.6 %; Mean Corpuscular HGB Conc 34 g/dL (31-36); Mean Corpuscular Hemoglobin 33 pg (27-31); Mean Corpuscular Volume 97 fL (80-94); Mean Platelet Volume 7.2 fL (7.4-10.4); Platelet Count 210 10^3/uL (150-450); Red Blood Count 4.01 10^6 /uL (4.18-5.48); Red Cell Distribution Width 13 % (10-15)
[2020-06-04 05:55] LABS: BUN/Creatinine Ratio 11.4 (8-20); EGFR Non-African American 122.5 (>60); Potassium 3.8 mmol/L (3.5-5.0)
[2020-06-04 05:56] LABS: Albumin/Globulin Ratio 1.4 (1-3); Calcium 8.9 mg/dL (8.6-10.3); EGFR African American 148.2 (>60); Globulin 2.9 g/dL (2-4); HDL Cholesterol 140.8 mg/dL; Total Bilirubin 0.6 mg/dL (0.2-1.0); Total Protein 6.9 g/dL (6.4-8.9)
[2020-06-04] MEDS: Pantoprazole VIAL 40 MG VIAL IV SCH ×2 (09:19→20:07)
[2020-06-04] MEDS: Buprenorp/Nalox 8-2 MG FILM SL FILM SCH ×3 (09:19→20:07)
[2020-06-04] MEDS: Nicotine PATCH 14 MG/24 HR PATCH TRANSDERM SCH (09:19)
[2020-06-04] MEDS ORDERED: Ondansetron 4 mg VIAL 2 MG/ML 2 ml VIAL ONE (14:50)
[2020-06-04] MEDS ORDERED: Ketamine HCL 50 mg/ml 10 ml VIAL (500 MG) ONE (14:50)
[2020-06-04] MEDS ORDERED: Midazolam 10 mg/10 ml VIAL 1 mg/ml 10 ml VIAL (10 mg) ONE (14:50)
[2020-06-04] MEDS ORDERED: Propofol 10 MG/ML 20 ML BTL ONE (14:50)
[2020-06-04] MEDS ORDERED: Lidocaine 2% PF 5 ML VIAL ONE (14:50)
[2020-06-04] MEDS ORDERED: Labetalol IV 5 MG/ML 20 ml VIAL IV PUSH ONE ×2 (16:03→16:36)
[2020-06-04] MEDS ORDERED: Labetalol IV 5 MG/ML 20 ml VIAL ONE (16:10)
[2020-06-04] MEDS: Multivitamins/Minerals TAB PO SCH (17:22)
[2020-06-04] MEDS: Lactated Ringers 1000 ml BAG 1,000 ML IV SCH (18:25)
[2020-06-05] MEDS: Lactated Ringers 1000 ml BAG 1,000 ML IV SCH (04:20)
[2020-06-05] MEDS: Multivitamins/Minerals TAB PO SCH (07:50)
[2020-06-05] MEDS: Pantoprazole VIAL 40 MG VIAL IV SCH (07:51)
[2020-06-05] MEDS: Buprenorp/Nalox 8-2 MG FILM SL FILM SCH (07:52)
[2020-06-05] MEDS: Nicotine PATCH 14 MG/24 HR PATCH TRANSDERM SCH (07:54)
[2020-06-05 09:39] VITALS: BP 152/89
[2020-06-07 12:48] LABS: Hepatitis Be Antigen Negative (Negative)
[2020-06-07 13:06] LABS: Hepatitis Be Antibody Negative (Negative)
[2020-06-07 16:32] LABS: Hepatitis B Surface Antigen Nonreactive (Nonreactive)
[2020-06-07 16:49] LABS: Hepatitis B Surface Ab Not Immune (Immune)
[2020-06-07 19:08] LABS: HIV 4th Generation Nonreactive (Nonreactive)
== END 2020-06-05 11:35 | disposition home or self-care (01) | DRG 282 ==
LOC: ED 10:34 → MED 16:14
PROVIDERS: ADMIT Internal Medicine; ATTEND Internal Medicine
PROC: O.GIEGD (2020-06-04 14:10)

== ENCOUNTER 2021-05-05 19:55 | Inpatient (IN) ==
[2021-05-05 21:04] LABS: ABS Lymphocytes 1.6 10^3/ul (1.0-4.8); ABS Monocytes 0.6 10^3/ul (0-0.8); ABS Neutrophils 3.4 10^3/ul (1.5-7.7); Eosinophil % 0.6 %; Hematocrit 32 % (42-52); Hemoglobin 11.1 g/dL (14.0-18.0); Lymphocyte % 28.2 %; Mean Corpuscular HGB Conc 35 g/dL (31-36); Mean Corpuscular Hemoglobin 34 pg (27-31); Mean Corpuscular Volume 98 fL (80-94); Mean Platelet Volume 7.2 fL (7.4-10.4); Platelet Count 262 10^3/uL (150-450); Red Cell Distribution Width 14 % (10-15); White Blood Count 5.6 10^3/uL (3.5-10.8)
[2021-05-05 21:16] LABS: ALT 15 U/L (7-52); AST 25 U/L (13-39); Albumin 4.5 g/dL (3.2-5.2); Albumin/Globulin Ratio 1.6 (1-3); Alkaline Phosphatase 80 U/L (35-149); Anion Gap 13 mmol/L (2-11); Blood Urea Nitrogen 17 mg/dL (6-24); CO2 Carbon Dioxide 24 mmol/L (22-32); Calcium 8.9 mg/dL (8.6-10.3); Chloride 101 mmol/L (101-111); Globulin 2.8 g/dL (2-4); Glucose 68 mg/dL (70-100); Potassium 3.8 mmol/L (3.5-5.0); Sodium 138 mmol/L (135-145); Total Protein 7.3 g/dL (6.4-8.9); eGFR CKD-EPI 109.2 (>60)
[2021-05-05 21:17] LABS: Acetaminophen < 15 mcg/mL; Alcohol, S 42 mg/dL (<13); Salicylate < 2.50 mg/dL (<30)
[2021-05-05 21:31] LABS: TSH Ultra Thyroid Stim Horm 0.87 mcIU/mL (0.34-5.60)
[2021-05-05 21:41] LABS: Urine Appearance Clear; Urine Bilirubin Negative (Negative); Urine Blood Negative (Negative); Urine Color Yellow; Urine Glucose Negative (Negative); Urine Ketones Trace (Negative); Urine Nitrite Negative (Negative); Urine Protein Negative (Negative); Urine Urobilinogen Positive (Negative)
[2021-05-05 22:12] LABS: Urine Benzodiazepine Screen None Detected (None Detect); Urine Cannabinoids Screen None Detected (None Detect); Urine Opiates Screen None Detected (None Detect)
[2021-05-06] MEDS ORDERED: Al Hydrox/Mg Hydrox/Simet LIQ 30 ML UDC PO PRN (10:48)
[2021-05-06] MEDS ORDERED: Multivitamins/Minerals TAB PO SCH (11:00)
[2021-05-06] MEDS: Multivitamins/Minerals TAB PO SCH (12:24)
[2021-05-06] MEDS: Buprenorp/Nalox 8-2 MG FILM SL FILM SCH (13:09)
[2021-05-06] MEDS ORDERED: Buprenorp/Nalox 8-2 MG FILM SL FILM SCH (21:00)
[2021-05-07] MEDS: Buprenorp/Nalox 8-2 MG FILM SL FILM SCH ×3 (05:59→22:37)
[2021-05-07] MEDS: Multivitamins/Minerals TAB PO SCH (08:42)
[2021-05-08 08:07] VITALS: BP 117/76
[2021-05-08] MEDS: Buprenorp/Nalox 8-2 MG FILM SL FILM SCH (08:51)
[2021-05-08] MEDS: Multivitamins/Minerals TAB PO SCH (08:53)
== END 2021-05-08 14:00 | disposition home or self-care (01) | DRG 773 ==
LOC: ED 19:55 → BSU 05-06 10:48 → ED 05-06 11:30 → BSU 05-06 12:42
PROVIDERS: ADMIT Psychiatry & Neurology Psychiatry; ATTEND Student in an Organized Health Care Education/Training Program

== ENCOUNTER 2022-03-26 09:34 | Inpatient (IN) ==
[2022-03-26] MEDS ORDERED: Lactated Ringers 1000 ml BAG 1,000 ML IV ONE ×2 (09:43→14:15)
[2022-03-26] MEDS ORDERED: Ondansetron 4 mg VIAL 2 MG/ML 2 ml VIAL IV ONE ×2 (09:43→13:16)
[2022-03-26] MEDS ORDERED: Morphine 10 MG/ML VIAL (1 ml) IM ONE (10:46)
[2022-03-26] MEDS ORDERED: Ondansetron ODT 4 mg TAB 4 MG TAB SL ONE (10:47)
[2022-03-26 13:07] LABS: ABS Basophils 0.1 10^3/ul (0-0.2); ABS Lymphocytes 1.4 10^3/ul (1.0-4.8); ABS Monocytes 0.4 10^3/ul (0-0.8); ABS Neutrophils 9.1 10^3/ul (1.5-7.7); Eosinophil % 0.1 %; Hematocrit 42 % (42-52); Hemoglobin 14.2 g/dL (14.0-18.0); Lymphocyte % 13.1 %; Mean Corpuscular HGB Conc 34 g/dL (31-36); Mean Corpuscular Hemoglobin 29 pg (27-31); Mean Corpuscular Volume 88 fL (80-94); Mean Platelet Volume 7.2 fL (7.4-10.4); Platelet Count 263 10^3/uL (150-450); Red Blood Count 4.83 10^6 /uL (4.18-5.48); Red Cell Distribution Width 16 % (10-15)
[2022-03-26 14:15] LABS: ALT 11 U/L (7-52); AST 21 U/L (13-39); Albumin 4.4 g/dL (3.2-5.2); Albumin/Globulin Ratio 1.5 (1-3); Alkaline Phosphatase 87 U/L (35-149); Anion Gap 10 mmol/L (2-11); Blood Urea Nitrogen 12 mg/dL (6-24); C Reactive Protein < 1.00 mg/L (<8.01); CO2 Carbon Dioxide 27 mmol/L (22-32); Calcium 8.6 mg/dL (8.6-10.3); Chloride 103 mmol/L (101-111); Globulin 2.9 g/dL (2-4); Glucose 127 mg/dL (70-100); Lipase 348 U/L (11.0-82.0); Potassium 4.5 mmol/L (3.5-5.0); Sodium 140 mmol/L (135-145); Total Protein 7.3 g/dL (6.4-8.9); eGFR CKD-EPI 112.5 (>60)
[2022-03-26] MEDS ORDERED: Iohexol 350 (CONTRAST) 500 ML MDV IV ONE (14:23)
[2022-03-26] MEDS ORDERED: Morphine 2 MG/ML SYRINGE IV PRN ×2 (16:07→19:00)
[2022-03-26] MEDS ORDERED: Lorazepam PYXIS KEY PRN ×2 (16:09→17:32)
[2022-03-26] MEDS ORDERED: LORazepam 2 mg VIAL 1 ml IV PUSH PRN (16:09)
[2022-03-26] MEDS ORDERED: Acetaminophen IV 1 GM/100ML 1,000 MG/100 ML BAG IV PRN (16:17)
[2022-03-26] MEDS ORDERED: Thiamine 100 MG/ML 2 ml VIAL (200 mg) IM ONE (16:45)
[2022-03-26] MEDS ORDERED: Lactated Ringers 1000 ml BAG 1,000 ML IV SCH (17:00)
[2022-03-26] MEDS ORDERED: Thiamine 100 MG/ML 2 ml VIAL 100 MG in NS 0.9% 50 ML 50 ML IV SCH (17:00)
[2022-03-26] MEDS ORDERED: Multivitamins/Minerals TAB PO SCH (17:00)
[2022-03-26] MEDS ORDERED: LORazepam 2 mg VIAL 1 ml IV PUSH SCH (17:00)
[2022-03-26] MEDS: Multivitamins/Minerals TAB PO SCH (17:25)
[2022-03-26] MEDS ORDERED: LORazepam 2 mg VIAL 1 ml IV PUSH ONE (17:32)
[2022-03-26] MEDS ORDERED: Metoclopramide 5 MG/ML VIAL (10 mg) IV ONE (17:35)
[2022-03-26] MEDS ORDERED: Prochlorperazine 5 mg/ml 2 ml VIAL (10 mg) IV PRN (17:52)
[2022-03-26 18:16] LABS: Urine Appearance Clear; Urine Bilirubin Negative (Negative); Urine Blood Negative (Negative); Urine Color Yellow; Urine Glucose Negative (Negative); Urine Ketones Negative (Negative); Urine Nitrite Negative (Negative); Urine Protein Negative (Negative); Urine Urobilinogen Negative (Negative)
[2022-03-26] MEDS: Pantoprazole VIAL 40 MG VIAL IV SCH (18:31)
[2022-03-26] MEDS: Acetaminophen IV 1 GM/100ML 1,000 MG/100 ML BAG IV PRN (18:31)
[2022-03-26] MEDS: LORazepam 2 mg VIAL 1 ml IV PUSH SCH ×2 (21:28→23:46)
[2022-03-26] MEDS: Enoxaparin 40 MG/0.4 ML SYR SUBCUT SCH (21:30)
[2022-03-26] MEDS: Buprenorp/Nalox 4-1 MG FILM SL FILM SCH ×2 (21:30→21:36)
[2022-03-26] MEDS: Lactated Ringers 1000 ml BAG 1,000 ML IV SCH (21:31)
[2022-03-26] MEDS: Ondansetron 4 mg VIAL 2 MG/ML 2 ml VIAL IV PRN (22:53)
[2022-03-27] MEDS ORDERED: HYDROmorphone 0.5 MG/0.5 ML SYRINGE IV SLOW PU ONE (01:06)
[2022-03-27] MEDS ORDERED: Prochlorperazine 5 mg/ml 2 ml VIAL (10 mg) IV PRN (01:08)
[2022-03-27] MEDS: Lactated Ringers 1000 ml BAG 1,000 ML IV SCH ×5 (01:43→18:25)
[2022-03-27] MEDS: Ondansetron 4 mg VIAL 2 MG/ML 2 ml VIAL IV PRN (02:33)
[2022-03-27] MEDS ORDERED: Lactated Ringers 1000 ml BAG 500 ML IV ONE (02:47)
[2022-03-27] MEDS: LORazepam 2 mg VIAL 1 ml IV PUSH SCH ×3 (03:03→08:21)
[2022-03-27] MEDS ORDERED: HYDROmorphone 0.5 MG/0.5 ML SYRINGE IV SLOW PU PRN ×2 (05:51→09:18)
[2022-03-27 07:32] LABS: ABS Lymphocytes 1.1 10^3/ul (1.0-4.8); ABS Monocytes 0.6 10^3/ul (0-0.8); ABS Neutrophils 9.3 10^3/ul (1.5-7.7); Eosinophil % 0.1 %; Hematocrit 36 % (42-52); Hemoglobin 12.3 g/dL (14.0-18.0); Lymphocyte % 9.6 %; Mean Corpuscular HGB Conc 34 g/dL (31-36); Mean Corpuscular Hemoglobin 30 pg (27-31); Mean Corpuscular Volume 86 fL (80-94); Mean Platelet Volume 7.1 fL (7.4-10.4); Platelet Count 198 10^3/uL (150-450); Red Blood Count 4.17 10^6 /uL (4.18-5.48); Red Cell Distribution Width 16 % (10-15); White Blood Count 11.1 10^3/uL (3.5-10.8)
[2022-03-27 07:59] LABS: Blood Urea Nitrogen 9 mg/dL (6-24); CO2 Carbon Dioxide 26 mmol/L (22-32); Calcium 8.3 mg/dL (8.6-10.3); Chloride 100 mmol/L (101-111); Cholesterol 126 mg/dL; Glucose 98 mg/dL (70-100); HDL Cholesterol 39.4 mg/dL; LDL Cholesterol 48 mg/dL; Sodium 136 mmol/L (135-145); Triglycerides 191 mg/dL; eGFR CKD-EPI 111.6 (>60)
[2022-03-27 08:07] LABS: Anion Gap 10 mmol/L (2-11)
[2022-03-27 08:25] LABS: Potassium, Whole Blood 3.9 mmol/L (3.4-4.5)
[2022-03-27] MEDS: Pantoprazole VIAL 40 MG VIAL IV SCH ×2 (09:09→21:52)
[2022-03-27] MEDS: Multivitamins/Minerals TAB PO SCH (09:09)
[2022-03-27] MEDS: Buprenorp/Nalox 8-2 MG FILM SL FILM SCH (09:19)
[2022-03-27] MEDS ORDERED: Magnesium Sulf 4 GM/100 ML IV 4,000 MG/100 ML BAG IVPB ONE (09:23)
[2022-03-27] MEDS ORDERED: HYDROmorphone 1 MG/1 ML SYRINGE ONE (10:06)
[2022-03-27] MEDS: HYDROmorphone 0.5 MG/0.5 ML SYRINGE IV SLOW PU PRN ×4 (10:07→22:00)
[2022-03-27] MEDS ORDERED: Labetalol IV 5 MG/ML 20 ml VIAL IV PUSH PRN (15:04)
[2022-03-27] MEDS: Buprenorp/Nalox 4-1 MG FILM SL FILM SCH (21:32)
[2022-03-27] MEDS: Enoxaparin 40 MG/0.4 ML SYR SUBCUT SCH (21:51)
[2022-03-28] MEDS: Acetaminophen IV 1 GM/100ML 1,000 MG/100 ML BAG IV PRN ×3 (00:51→23:44)
[2022-03-28] MEDS: Lactated Ringers 1000 ml BAG 1,000 ML IV SCH ×2 (01:17→19:05)
[2022-03-28] MEDS: HYDROmorphone 0.5 MG/0.5 ML SYRINGE IV SLOW PU PRN ×2 (02:06→10:57)
[2022-03-28] MEDS ORDERED: Magnesium Hydroxide LIQ 30 ML UDC PO PRN (07:31)
[2022-03-28] MEDS ORDERED: Senna TAB 8.6 mg TAB PO PRN (07:31)
[2022-03-28] MEDS: Pantoprazole VIAL 40 MG VIAL IV SCH ×2 (09:03→20:38)
[2022-03-28] MEDS: CMCS:FluvoxaMINE 50 mg TAB (NF) PO SCH (09:04)
[2022-03-28] MEDS: Multivitamins/Minerals TAB PO SCH (09:05)
[2022-03-28] MEDS: Buprenorp/Nalox 8-2 MG FILM SL FILM SCH (09:37)
[2022-03-28 12:12] LABS: ABS Eosinophils 0.1 10^3/ul (0-0.6); ABS Lymphocytes 1.1 10^3/ul (1.0-4.8); ABS Monocytes 0.4 10^3/ul (0-0.8); Eosinophil % 0.9 %; Hematocrit 35 % (42-52); Hemoglobin 11.8 g/dL (14.0-18.0); Lymphocyte % 17.2 %; Mean Corpuscular HGB Conc 34 g/dL (31-36); Mean Corpuscular Hemoglobin 29 pg (27-31); Mean Corpuscular Volume 87 fL (80-94); Nucleated Red Blood Cells % 0.1; Platelet Count 169 10^3/uL (150-450); Red Blood Count 4.01 10^6 /uL (4.18-5.48); Red Cell Distribution Width 16 % (10-15); White Blood Count 6.6 10^3/uL (3.5-10.8)
[2022-03-28 13:06] LABS: Calcium 8.2 mg/dL (8.6-10.3); Magnesium 2.1 mg/dL (1.9-2.7); Potassium 3.8 mmol/L (3.5-5.0); eGFR CKD-EPI 115.3 (>60)
[2022-03-28] MEDS: HYDROmorphone 1 MG/1 ML SYRINGE IV SLOW PU PRN ×3 (14:52→22:27)
[2022-03-28] MEDS: Ondansetron 4 mg VIAL 2 MG/ML 2 ml VIAL IV PRN (20:34)
[2022-03-28] MEDS: Enoxaparin 40 MG/0.4 ML SYR SUBCUT SCH (20:43)
[2022-03-29] MEDS: Lactated Ringers 1000 ml BAG 1,000 ML IV SCH ×4 (00:39→23:04)
[2022-03-29] MEDS: HYDROmorphone 1 MG/1 ML SYRINGE IV SLOW PU PRN ×7 (02:21→23:48)
[2022-03-29] MEDS: Ondansetron 4 mg VIAL 2 MG/ML 2 ml VIAL IV PRN ×2 (02:22→11:46)
[2022-03-29] MEDS ORDERED: HYDROmorphone 1 MG/1 ML SYRINGE IV SLOW PU ONE (05:24)
[2022-03-29 07:03] LABS: ABS Eosinophils 0.1 10^3/ul (0-0.6); ABS Lymphocytes 1.1 10^3/ul (1.0-4.8); ABS Monocytes 0.6 10^3/ul (0-0.8); ABS Neutrophils 4.7 10^3/ul (1.5-7.7); Eosinophil % 1.4 %; Hematocrit 36 % (42-52); Hemoglobin 12.1 g/dL (14.0-18.0); Mean Corpuscular HGB Conc 34 g/dL (31-36); Mean Corpuscular Hemoglobin 30 pg (27-31); Mean Corpuscular Volume 87 fL (80-94); Mean Platelet Volume 7.2 fL (7.4-10.4); Platelet Count 149 10^3/uL (150-450); Red Blood Count 4.11 10^6 /uL (4.18-5.48); Red Cell Distribution Width 16 % (10-15); White Blood Count 6.5 10^3/uL (3.5-10.8)
[2022-03-29] MEDS: Acetaminophen IV 1 GM/100ML 1,000 MG/100 ML BAG IV PRN (07:38)
[2022-03-29] MEDS: LORazepam 2 mg VIAL 1 ml IV PUSH SCH ×2 (07:38→12:51)
[2022-03-29 08:04] LABS: Blood Urea Nitrogen 6 mg/dL (6-24); CO2 Carbon Dioxide 24 mmol/L (22-32); Calcium 8.3 mg/dL (8.6-10.3); Chloride 99 mmol/L (101-111); Glucose 75 mg/dL (70-100); Magnesium 1.7 mg/dL (1.9-2.7); Sodium 136 mmol/L (135-145); eGFR CKD-EPI 116.8 (>60)
[2022-03-29 08:32] LABS: Anion Gap 13 mmol/L (2-11)
[2022-03-29] MEDS ORDERED: Magnesium Sulfate IV 3 GM in NS 0.9% 100 ml BAG 100 ML IVPB ONE (08:39)
[2022-03-29] MEDS: Pantoprazole VIAL 40 MG VIAL IV SCH ×2 (09:05→20:49)
[2022-03-29] MEDS: CMCS:FluvoxaMINE 50 mg TAB (NF) PO SCH (09:05)
[2022-03-29] MEDS: Multivitamins/Minerals TAB PO SCH (09:06)
[2022-03-29] MEDS ORDERED: HYDROmorphone 1 MG/1 ML SYRINGE IV SLOW PU PRN (11:28)
[2022-03-29] MEDS ORDERED: Iohexol 350 (CONTRAST) 500 ML MDV IV ONE (13:15)
[2022-03-29] MEDS ORDERED: KCL 20 MEQ/100 ML IVPREMIX 20 MEQ/100 ML BAG IV ONE (13:24)
[2022-03-29] MEDS: Enoxaparin 40 MG/0.4 ML SYR SUBCUT SCH (20:49)
[2022-03-30] MEDS: HYDROmorphone 1 MG/1 ML SYRINGE IV SLOW PU PRN ×3 (02:51→08:57)
[2022-03-30] MEDS: Lactated Ringers 1000 ml BAG 1,000 ML IV SCH ×3 (04:44→18:01)
[2022-03-30 06:07] LABS: ABS Eosinophils 0.1 10^3/ul (0-0.6); ABS Lymphocytes 1.5 10^3/ul (1.0-4.8); ABS Monocytes 0.7 10^3/ul (0-0.8); ABS Neutrophils 6.1 10^3/ul (1.5-7.7); Eosinophil % 0.9 %; Hematocrit 38 % (42-52); Hemoglobin 12.6 g/dL (14.0-18.0); Mean Corpuscular HGB Conc 34 g/dL (31-36); Mean Corpuscular Hemoglobin 29 pg (27-31); Mean Corpuscular Volume 86 fL (80-94); Mean Platelet Volume 7.4 fL (7.4-10.4); Platelet Count 202 10^3/uL (150-450); Red Blood Count 4.34 10^6 /uL (4.18-5.48); Red Cell Distribution Width 16 % (10-15); White Blood Count 8.4 10^3/uL (3.5-10.8)
[2022-03-30 06:27] LABS: Calcium 8.8 mg/dL (8.6-10.3); Magnesium 1.9 mg/dL (1.9-2.7); eGFR CKD-EPI 115.3 (>60)
[2022-03-30] MEDS: Pantoprazole VIAL 40 MG VIAL IV SCH ×2 (08:47→21:08)
[2022-03-30] MEDS: Ondansetron 4 mg VIAL 2 MG/ML 2 ml VIAL IV SCH ×2 (08:48→21:08)
[2022-03-30] MEDS: Multivitamins/Minerals TAB PO SCH (08:48)
[2022-03-30] MEDS: CMCS:FluvoxaMINE 50 mg TAB (NF) PO SCH (08:58)
[2022-03-30] MEDS: Acetaminophen IV 1 GM/100ML 1,000 MG/100 ML BAG IV PRN ×2 (09:55→19:28)
[2022-03-30] MEDS: Senna TAB 8.6 mg TAB PO SCH (21:10)
[2022-03-30] MEDS: Enoxaparin 40 MG/0.4 ML SYR SUBCUT SCH (21:10)
[2022-03-31] MEDS: Lactated Ringers 1000 ml BAG 1,000 ML IV SCH ×4 (02:31→23:59)
[2022-03-31 09:15] LABS: ABS Eosinophils 0.2 10^3/ul (0-0.6); ABS Lymphocytes 2.1 10^3/ul (1.0-4.8); ABS Monocytes 0.7 10^3/ul (0-0.8); ABS Neutrophils 2.7 10^3/ul (1.5-7.7); Hematocrit 35 % (42-52); Hemoglobin 11.8 g/dL (14.0-18.0); Lymphocyte % 35.9 %; Mean Corpuscular HGB Conc 34 g/dL (31-36); Mean Corpuscular Hemoglobin 29 pg (27-31); Mean Corpuscular Volume 87 fL (80-94); Nucleated Red Blood Cells % 0.1; Platelet Count 213 10^3/uL (150-450); Red Blood Count 4.02 10^6 /uL (4.18-5.48); Red Cell Distribution Width 16 % (10-15); White Blood Count 5.8 10^3/uL (3.5-10.8)
[2022-03-31 09:55] LABS: Calcium 8.9 mg/dL (8.6-10.3); Magnesium 1.8 mg/dL (1.9-2.7); Potassium 3.6 mmol/L (3.5-5.0); eGFR CKD-EPI 114.8 (>60)
[2022-03-31] MEDS ORDERED: Buprenorp/Nalox 2-0.5 mg SL TB SL PRN (10:20)
[2022-03-31] MEDS: Multivitamins/Minerals TAB PO SCH (10:32)
[2022-03-31] MEDS: CMCS:FluvoxaMINE 50 mg TAB (NF) PO SCH (10:33)
[2022-03-31] MEDS: Pantoprazole VIAL 40 MG VIAL IV SCH (10:33)
[2022-03-31] MEDS: Ondansetron 4 mg VIAL 2 MG/ML 2 ml VIAL IV SCH (10:34)
[2022-03-31] MEDS ORDERED: Magnesium Sulfate 2 gm BAG 2 GM/50 ML BAG IVPB ONE (14:51)
[2022-03-31] MEDS ORDERED: Ondansetron 4 mg VIAL 2 MG/ML 2 ml VIAL IV PRN (16:15)
[2022-03-31] MEDS: Enoxaparin 40 MG/0.4 ML SYR SUBCUT SCH (20:16)
[2022-03-31] MEDS: Senna TAB 8.6 mg TAB PO SCH (20:18)
[2022-04-01] MEDS ORDERED: Ondansetron ODT 4 mg TAB 4 MG TAB PO ONE (02:36)
[2022-04-01 06:30] LABS: ABS Eosinophils 0.1 10^3/ul (0-0.6); ABS Lymphocytes 1.6 10^3/ul (1.0-4.8); ABS Monocytes 0.6 10^3/ul (0-0.8); Eosinophil % 1.2 %; Hematocrit 39 % (42-52); Lymphocyte % 29.6 %; Mean Corpuscular HGB Conc 34 g/dL (31-36); Mean Corpuscular Hemoglobin 29 pg (27-31); Mean Corpuscular Volume 86 fL (80-94); Mean Platelet Volume 7.1 fL (7.4-10.4); Nucleated Red Blood Cells % 0.2; Platelet Count 281 10^3/uL (150-450); Red Blood Count 4.51 10^6 /uL (4.18-5.48); Red Cell Distribution Width 16 % (10-15); White Blood Count 5.3 10^3/uL (3.5-10.8)
[2022-04-01] MEDS: Buprenorp/Nalox 2-0.5 mg SL TB SL PRN ×3 (06:42→13:54)
[2022-04-01 06:47] LABS: Calcium 9.1 mg/dL (8.6-10.3); Magnesium 2.1 mg/dL (1.9-2.7); Potassium 3.7 mmol/L (3.5-5.0); eGFR CKD-EPI 116.3 (>60)
[2022-04-01] MEDS: CMCS:FluvoxaMINE 50 mg TAB (NF) PO SCH (08:59)
[2022-04-01] MEDS: Multivitamins/Minerals TAB PO SCH (09:00)
[2022-04-01] MEDS ORDERED: Ondansetron ODT 4 mg TAB 4 MG TAB SL ONE (09:06)
[2022-04-01] MEDS: Ondansetron ODT 4 mg TAB 4 MG TAB SL SCH ×2 (13:50→15:44)
[2022-04-01 15:49] VITALS: BP 148/77
== END 2022-04-01 17:40 | disposition home or self-care (01) | DRG 282 ==
LOC: ED 09:34 → EDHOLD 16:03 → SUATTDRO 16:03 → SSU 18:57
PROVIDERS: ADMIT Internal Medicine; ATTEND Student in an Organized Health Care Education/Training Program

== ENCOUNTER 2022-06-08 01:44 | Inpatient (IN) ==
[2022-06-08 02:35] LABS: ABS Lymphocytes 1.9 10^3/ul (1.0-4.8); ABS Monocytes 0.9 10^3/ul (0-0.8); ABS Neutrophils 7.6 10^3/ul (1.5-7.7); Hematocrit 47 % (42-52); Hemoglobin 15.8 g/dL (14.0-18.0); Mean Corpuscular HGB Conc 34 g/dL (31-36); Mean Corpuscular Hemoglobin 32 pg (27-31); Mean Corpuscular Volume 94 fL (80-94); Mean Platelet Volume 7.9 fL (7.4-10.4); Nucleated Red Blood Cells % 0.1; Platelet Count 204 10^3/uL (150-450); Red Blood Count 4.98 10^6 /uL (4.18-5.48); Red Cell Distribution Width 18 % (10-15); White Blood Count 10.4 10^3/uL (3.5-10.8)
[2022-06-08] MEDS ORDERED: Morphine 2 MG/ML SYRINGE IV PRN (02:49)
[2022-06-08] MEDS ORDERED: Morphine 4 MG/ML VIAL (1 ml) IV ONE (02:49)
[2022-06-08 03:11] LABS: ALT 22 U/L (7-52); Albumin/Globulin Ratio 1.3 (1-3); Alkaline Phosphatase 141 U/L (35-149); Blood Urea Nitrogen 24 mg/dL (6-24); C Reactive Protein 8.39 mg/L (<8.01); CO2 Carbon Dioxide 24 mmol/L (22-32); Calcium 9.4 mg/dL (8.6-10.3); Chloride 85 mmol/L (101-111); Creatinine, Serum 1.32 mg/dL (0.67-1.17); Globulin 3.8 g/dL (2-4); Glucose 82 mg/dL (70-100); Lipase 189 U/L (11.0-82.0); Sodium 132 mmol/L (135-145); Total Protein 8.8 g/dL (6.4-8.9); eGFR CKD-EPI 67.4 (>60)
[2022-06-08 03:14] LABS: Anion Gap 23 mmol/L (2-11)
[2022-06-08] MEDS ORDERED: Iohexol 350 (CONTRAST) 500 ML MDV IV ONE (03:18)
[2022-06-08] MEDS: NS 0.9% 1000 ml BAG 2,000 ML IV ONE (03:20)
[2022-06-08] MEDS ORDERED: HYDROmorphone 1 MG/1 ML SYRINGE IV ONE (03:55)
[2022-06-08] MEDS ORDERED: Acetaminophen IV 1 GM/100ML 1,000 MG/100 ML BAG IV PRN (08:05)
[2022-06-08] MEDS: HYDROmorphone 1 MG/1 ML SYRINGE IV PRN ×5 (08:41→21:51)
[2022-06-08] MEDS ORDERED: cloNIDine 0.1 MG PATCH 0.1 MG/24 HR 7 DAY PATCH TRANSDERM SCH (09:00)
[2022-06-08] MEDS: Pantoprazole VIAL 40 MG VIAL IV SCH (10:07)
[2022-06-08] MEDS ORDERED: Thiamine 100 MG/ML 2 ml VIAL (200 mg) IM ONE (10:24)
[2022-06-08] MEDS: NS 0.9% 1000 ml BAG 1,000 ML IV SCH ×2 (10:40→17:55)
[2022-06-08] MEDS: Multivitamins/Minerals TAB PO SCH (11:41)
[2022-06-08] MEDS: Ondansetron 4 mg VIAL 2 MG/ML 2 ml VIAL IV PRN ×3 (13:41→21:51)
[2022-06-09] MEDS: NS 0.9% 1000 ml BAG 1,000 ML IV SCH ×2 (00:35→07:37)
[2022-06-09] MEDS: HYDROmorphone 1 MG/1 ML SYRINGE IV PRN ×3 (01:51→15:29)
[2022-06-09] MEDS: Ondansetron 4 mg VIAL 2 MG/ML 2 ml VIAL IV PRN ×4 (01:52→15:29)
[2022-06-09] MEDS ORDERED: Acetaminophen IV 1 GM/100ML 1,000 MG/100 ML BAG IV PRN (07:36)
[2022-06-09 07:40] LABS: Hematocrit 37 % (42-52); Hemoglobin 12.6 g/dL (14.0-18.0); Mean Corpuscular HGB Conc 34 g/dL (31-36); Mean Corpuscular Hemoglobin 32 pg (27-31); Mean Corpuscular Volume 94 fL (80-94); Mean Platelet Volume 7.7 fL (7.4-10.4); Platelet Count 129 10^3/uL (150-450); Red Blood Count 3.94 10^6 /uL (4.18-5.48); Red Cell Distribution Width 17 % (10-15); White Blood Count 5.9 10^3/uL (3.5-10.8)
[2022-06-09 07:50] LABS: Albumin 3.9 g/dL (3.2-5.2); Albumin/Globulin Ratio 1.4 (1-3); Calcium 8.4 mg/dL (8.6-10.3); Creatinine, Serum 0.69 mg/dL (0.67-1.17); Globulin 2.7 g/dL (2-4); Magnesium 1.6 mg/dL (1.9-2.7); Potassium 3.1 mmol/L (3.5-5.0); Total Protein 6.6 g/dL (6.4-8.9); eGFR CKD-EPI 115.6 (>60)
[2022-06-09] MEDS: Multivitamins/Minerals TAB PO SCH (08:35)
[2022-06-09] MEDS ORDERED: NS 0.9% 1000 ml BAG 1,000 ML IV SCH (08:57)
[2022-06-09] MEDS ORDERED: Magnesium Sulfate IV 3 GM in NS 0.9% 100 ml BAG 100 ML IVPB ONE (08:57)
[2022-06-09] MEDS: KCL 20 MEQ/100 ML IVPREMIX 20 MEQ/100 ML BAG IV SCH ×2 (09:24→11:54)
[2022-06-09] MEDS: Pantoprazole VIAL 40 MG VIAL IV SCH (09:51)
[2022-06-10 06:28] LABS: ABS Eosinophils 0.1 10^3/ul (0-0.6); ABS Lymphocytes 1.2 10^3/ul (1.0-4.8); ABS Monocytes 0.3 10^3/ul (0-0.8); ABS Neutrophils 2.8 10^3/ul (1.5-7.7); Eosinophil % 1.9 %; Hematocrit 35 % (42-52); Hemoglobin 11.6 g/dL (14.0-18.0); Lymphocyte % 26.4 %; Mean Corpuscular HGB Conc 33 g/dL (31-36); Mean Corpuscular Hemoglobin 31 pg (27-31); Mean Corpuscular Volume 94 fL (80-94); Mean Platelet Volume 7.7 fL (7.4-10.4); Nucleated Red Blood Cells % 0.1; Platelet Count 111 10^3/uL (150-450); Red Blood Count 3.71 10^6 /uL (4.18-5.48); Red Cell Distribution Width 17 % (10-15); White Blood Count 4.4 10^3/uL (3.5-10.8)
[2022-06-10 06:46] LABS: Calcium 8.7 mg/dL (8.6-10.3); Creatinine, Serum 0.7 mg/dL (0.67-1.17); Magnesium 1.9 mg/dL (1.9-2.7); Potassium 3.7 mmol/L (3.5-5.0); eGFR CKD-EPI 115.1 (>60)
[2022-06-10] MEDS: Pantoprazole VIAL 40 MG VIAL IV SCH (08:56)
[2022-06-10] MEDS: Ondansetron 4 mg VIAL 2 MG/ML 2 ml VIAL IV PRN (08:56)
[2022-06-10] MEDS: Multivitamins/Minerals TAB PO SCH (08:57)
[2022-06-10 12:02] VITALS: BP 135/86
== END 2022-06-10 13:30 | disposition home or self-care (01) | DRG 282 ==
LOC: ED 01:44 → EDHOLD 01:44 → OBSVTOIN 07:13 → EDHOLD 10:18 → MED 11:19
PROVIDERS: ADMIT Internal Medicine; ATTEND Internal Medicine

== ENCOUNTER 2023-01-11 09:10 | Inpatient (IN) ==
[2023-01-11 10:37] LABS: ABS Monocytes 0.3 10^3/uL (0.0-1.1); ABS Neutrophils 5.5 10^3/uL (1.5-7.6); Eosinophil % 0.1 %; Hematocrit 38.6 % (38-53); Hemoglobin 12.9 g/dL (13.2-16.3); Lymphocyte % 14.5 %; Mean Corpuscular Hgb Conc 33.5 g/dL (31-36); Mean Corpuscular Volume 95.4 fL (80-97); Mean Platelet Volume 7.5 fL (7.5-11.2); Nucleated Red Blood Cells % 0.1 /100 WBC (0.0-0.4); Platelet Count 162 10^3/uL (150-450); Red Blood Count 4.05 10^6/uL (4.06-5.63); Red Cell Distribution Width 15.3 % (12-17); White Blood Count 6.8 10^3/uL (3.6-10.2)
[2023-01-11] MEDS ORDERED: Ondansetron 4 mg VIAL 2 MG/ML 2 ml VIAL IV ONE (10:45)
[2023-01-11] MEDS ORDERED: Lactated Ringers 1000 ml BAG 1,000 ML IV ONE ×3 (10:45→13:13)
[2023-01-11] MEDS ORDERED: Morphine 4 MG/ML VIAL (1 ml) IV ONE ×2 (10:45→13:13)
[2023-01-11 10:59] LABS: Albumin 4.2 g/dL (3.2-5.2); Albumin/Globulin Ratio 1.4 (1-3); C Reactive Protein 1.37 mg/L (<8.01); Calcium 8.3 mg/dL (8.6-10.3); Creatinine, Serum 0.81 mg/dL (0.67-1.17); Globulin 3.1 g/dL (2-4); Potassium 3.6 mmol/L (3.5-5.0); Total Bilirubin 0.5 mg/dL (0.2-1.0); Total Protein 7.3 g/dL (6.4-8.9); eGFR CKD-EPI 110.1 (>60)
[2023-01-11] MEDS ORDERED: Iohexol 300 (CONTRAST) 10 ML SDV IV ONE (11:11)
[2023-01-11 12:17] LABS: Venous Bicarbonate HCO3 19.9 mmol/L (24-28)
[2023-01-11] MEDS ORDERED: Acetaminophen IV 1 GM/100ML 1,000 MG/100 ML BAG IV ONE (14:03)
[2023-01-11] MEDS ORDERED: Ondansetron 4 mg VIAL 2 MG/ML 2 ml VIAL IV PRN (14:21)
[2023-01-11] MEDS ORDERED: Thiamine 100 MG/ML 2 ml VIAL (200 mg) IM ONE (15:06)
[2023-01-11] MEDS ORDERED: Lorazepam PYXIS KEY PRN (15:17)
[2023-01-11] MEDS ORDERED: LORazepam 2 mg VIAL 1 ml IV PUSH PRN (15:17)
[2023-01-11] MEDS ORDERED: HYDROmorphone 0.5 MG/0.5 ML SYRINGE IV PRN ×2 (15:20→17:57)
[2023-01-11] MEDS ORDERED: Lactated Ringers 1000 ml BAG 1,000 ML IV SCH ×2 (16:00)
[2023-01-11] MEDS: Multivitamins/Minerals TAB PO SCH (16:45)
[2023-01-11] MEDS: Morphine 2 MG/ML SYRINGE IV PRN ×2 (17:37→22:35)
[2023-01-11] MEDS: Lactated Ringers 1000 ml BAG 1,000 ML IV SCH (17:49)
[2023-01-11] MEDS ORDERED: Enoxaparin 30 MG/0.3 ML SYR SUBCUT SCH (18:00)
[2023-01-11 19:26] LABS: Ferritin 672.7 ng/mL (24-336)
[2023-01-11 19:30] LABS: Folate 7.41 ng/mL (5.90-24.80)
[2023-01-11] MEDS ORDERED: Buprenorp/Nalox 8-2 MG FILM SL SCH (21:00)
[2023-01-11] MEDS ORDERED: Heparin 5000 UNITS/ML 1 mL VIAL SUBCUT SCH (21:00)
[2023-01-11] MEDS ORDERED: HYDROmorphone 0.5 MG/0.5 ML SYRINGE IV SLOW PU ONE (21:35)
[2023-01-11] MEDS: LORazepam 2 mg VIAL 1 ml IV PUSH PRN (22:51)
[2023-01-12] MEDS: HYDROmorphone 0.5 MG/0.5 ML SYRINGE IV PRN ×8 (00:09→22:42)
[2023-01-12] MEDS: Prochlorperazine 5 mg/ml 2 ml VIAL (10 mg) IV PRN ×2 (01:00→18:06)
[2023-01-12] MEDS: LORazepam 2 mg VIAL 1 ml IV PUSH PRN ×9 (01:00→22:42)
[2023-01-12] MEDS: Lactated Ringers 1000 ml BAG 1,000 ML IV SCH ×4 (01:07→19:34)
[2023-01-12] MEDS: Morphine 2 MG/ML SYRINGE IV PRN (03:15)
[2023-01-12 03:42] LABS: Urine Appearance Clear; Urine Bilirubin Negative (Negative); Urine Blood Negative (Negative); Urine Color Straw; Urine Glucose Negative (Negative); Urine Ketones 1+ (Negative); Urine Nitrite Negative (Negative); Urine Protein Negative (Negative); Urine Specific Gravity 1.005 (1.002-1.030); Urine Urobilinogen Negative (Negative)
[2023-01-12] MEDS: Ondansetron 4 mg VIAL 2 MG/ML 2 ml VIAL IV PRN ×2 (06:27→20:29)
[2023-01-12 07:19] LABS: ABS Lymphocytes 1.5 10^3/uL (1.0-4.8); ABS Monocytes 0.3 10^3/uL (0.0-1.1); ABS Neutrophils 2.7 10^3/uL (1.5-7.6); Eosinophil % 0.5 %; Hematocrit 33.5 % (38-53); Hemoglobin 11.5 g/dL (13.2-16.3); Mean Corpuscular Hemoglobin 32.4 pg (27-33); Mean Corpuscular Hgb Conc 34.2 g/dL (31-36); Mean Corpuscular Volume 94.5 fL (80-97); Mean Platelet Volume 8.2 fL (7.5-11.2); Nucleated Red Blood Cells % 0.1 /100 WBC (0.0-0.4); Platelet Count 113 10^3/uL (150-450); Red Blood Count 3.55 10^6/uL (4.06-5.63); Red Cell Distribution Width 14.6 % (12-17); White Blood Count 4.5 10^3/uL (3.6-10.2)
[2023-01-12 07:28] LABS: Albumin 3.4 g/dL (3.2-5.2); Albumin/Globulin Ratio 1.3 (1-3); Creatinine, Serum 0.67 mg/dL (0.67-1.17); Direct Bilirubin 0.1 mg/dL (0.03-0.18); Globulin 2.7 g/dL (2-4); Indirect Bilirubin 0.5 mg/dL (0.3-1.0); Magnesium 1.5 mg/dL (1.9-2.7); Total Bilirubin 0.6 mg/dL (0.2-1.0); Total Protein 6.1 g/dL (6.4-8.9); eGFR CKD-EPI 116.6 (>60)
[2023-01-12] MEDS ORDERED: Magnesium Sulf 4 GM/100 ML IV 4,000 MG/100 ML BAG IVPB ONE (07:35)
[2023-01-12] MEDS: Multivitamins/Minerals TAB PO SCH (08:27)
[2023-01-12] MEDS: Enoxaparin 40 MG/0.4 ML SYR SUBCUT SCH (16:24)
[2023-01-13] MEDS: Prochlorperazine 5 mg/ml 2 ml VIAL (10 mg) IV PRN ×2 (00:28→23:25)
[2023-01-13] MEDS: LORazepam 2 mg VIAL 1 ml IV PUSH PRN ×9 (00:45→23:26)
[2023-01-13] MEDS: HYDROmorphone 0.5 MG/0.5 ML SYRINGE IV PRN ×5 (00:46→21:20)
[2023-01-13] MEDS: Lactated Ringers 1000 ml BAG 1,000 ML IV SCH ×2 (04:00→19:27)
[2023-01-13] MEDS: Ondansetron 4 mg VIAL 2 MG/ML 2 ml VIAL IV PRN ×4 (05:00→21:20)
[2023-01-13 06:19] LABS: ABS Lymphocytes 1.5 10^3/uL (1.0-4.8); ABS Monocytes 0.3 10^3/uL (0.0-1.1); ABS Neutrophils 1.9 10^3/uL (1.5-7.6); Hematocrit 38.7 % (38-53); Hemoglobin 13.4 g/dL (13.2-16.3); Lymphocyte % 39.9 %; Mean Corpuscular Hemoglobin 32.1 pg (27-33); Mean Corpuscular Hgb Conc 34.5 g/dL (31-36); Mean Corpuscular Volume 93.2 fL (80-97); Mean Platelet Volume 8.3 fL (7.5-11.2); Platelet Count 122 10^3/uL (150-450); Red Blood Count 4.16 10^6/uL (4.06-5.63); Red Cell Distribution Width 14.9 % (12-17); White Blood Count 3.7 10^3/uL (3.6-10.2)
[2023-01-13 06:59] LABS: Albumin 3.9 g/dL (3.2-5.2); Albumin/Globulin Ratio 1.2 (1-3); Calcium 8.6 mg/dL (8.6-10.3); Creatinine, Serum 0.72 mg/dL (0.67-1.17); Globulin 3.2 g/dL (2-4); Magnesium 1.9 mg/dL (1.9-2.7); Potassium 3.5 mmol/L (3.5-5.0); Total Bilirubin 0.6 mg/dL (0.2-1.0); Total Protein 7.1 g/dL (6.4-8.9); eGFR CKD-EPI 114.1 (>60)
[2023-01-13] MEDS ORDERED: Potassium Chlor 20 meq TAB.ER PO ONE (07:28)
[2023-01-13] MEDS ORDERED: KCL 10 MEQ/50 ML IVPREMIX 10 MEQ/50 ML BAG IV ONE (07:29)
[2023-01-13] MEDS ORDERED: Magnesium Sulfate IV 1GM/100ML 1 GM/100 ML BAG IV ONE (09:55)
[2023-01-13] MEDS: Morphine 2 MG/ML SYRINGE IV PRN ×4 (10:57→23:25)
[2023-01-13] MEDS: Multivitamins/Minerals TAB PO SCH (11:23)
[2023-01-13] MEDS: Enoxaparin 40 MG/0.4 ML SYR SUBCUT SCH (18:11)
[2023-01-14] MEDS: HYDROmorphone 0.5 MG/0.5 ML SYRINGE IV PRN ×7 (01:32→22:08)
[2023-01-14] MEDS: LORazepam 2 mg VIAL 1 ml IV PUSH PRN ×7 (01:33→20:54)
[2023-01-14] MEDS: Lactated Ringers 1000 ml BAG 1,000 ML IV SCH ×3 (04:09→22:04)
[2023-01-14] MEDS: Morphine 2 MG/ML SYRINGE IV PRN ×4 (05:14→19:53)
[2023-01-14] MEDS: Ondansetron 4 mg VIAL 2 MG/ML 2 ml VIAL IV PRN ×4 (05:15→18:45)
[2023-01-14 06:03] LABS: Albumin/Globulin Ratio 1.4 (1-3); Calcium 9.1 mg/dL (8.6-10.3); Creatinine, Serum 0.77 mg/dL (0.67-1.17); Globulin 2.9 g/dL (2-4); Magnesium 1.7 mg/dL (1.9-2.7); Phosphorus 3.5 mg/dL (2.5-5.0); Potassium 3.8 mmol/L (3.5-5.0); Total Bilirubin 0.6 mg/dL (0.2-1.0); Total Protein 6.9 g/dL (6.4-8.9); eGFR CKD-EPI 111.8 (>60)
[2023-01-14] MEDS ORDERED: Magnesium Sulfate 2 gm BAG 2 GM/50 ML BAG IVPB ONE (07:22)
[2023-01-14] MEDS ORDERED: Potassium Chlor 20 meq TAB.ER PO ONE (07:22)
[2023-01-14 08:38] LABS: ABS Eosinophils 0.1 10^3/uL (0.0-0.5); ABS Lymphocytes 1.7 10^3/uL (1.0-4.8); ABS Monocytes 0.3 10^3/uL (0.0-1.1); ABS Neutrophils 2.1 10^3/uL (1.5-7.6); ABS Nucleated RBC 0.01 10^3/ul; Hematocrit 39.1 % (38-53); Hemoglobin 13.4 g/dL (13.2-16.3); Lymphocyte % 40.5 %; Mean Corpuscular Hgb Conc 34.3 g/dL (31-36); Mean Corpuscular Volume 93.4 fL (80-97); Mean Platelet Volume 9.2 fL (7.5-11.2); Nucleated Red Blood Cells % 0.1 /100 WBC (0.0-0.4); Platelet Count 126 10^3/uL (150-450); Red Blood Count 4.19 10^6/uL (4.06-5.63); Red Cell Distribution Width 14.9 % (12-17); White Blood Count 4.2 10^3/uL (3.6-10.2)
[2023-01-14] MEDS ORDERED: Lactated Ringers 1000 ml BAG 1,000 ML IV SCH ×2 (08:46→14:00)
[2023-01-14] MEDS: Multivitamins/Minerals TAB PO SCH (09:35)
[2023-01-14] MEDS: Nicotine GUM 2MG FRUIT FLAVOR PO PRN ×2 (09:37→20:03)
[2023-01-14] MEDS ORDERED: Prochlorperazine 5 mg/ml 2 ml VIAL (10 mg) IV ONE (13:28)
[2023-01-14] MEDS ORDERED: Morphine 2 MG/ML SYRINGE IV ONE (13:29)
[2023-01-14] MEDS: Enoxaparin 40 MG/0.4 ML SYR SUBCUT SCH (18:46)
[2023-01-15] MEDS: Morphine 2 MG/ML SYRINGE IV PRN ×5 (00:08→23:10)
[2023-01-15] MEDS: LORazepam 2 mg VIAL 1 ml IV PUSH PRN ×7 (00:09→23:24)
[2023-01-15] MEDS: Ondansetron 4 mg VIAL 2 MG/ML 2 ml VIAL IV PRN ×5 (00:09→21:10)
[2023-01-15] MEDS: Lactated Ringers 1000 ml BAG 1,000 ML IV SCH ×3 (06:27→22:04)
[2023-01-15 06:44] LABS: ABS Eosinophils 0.2 10^3/uL (0.0-0.5); ABS Lymphocytes 1.6 10^3/uL (1.0-4.8); ABS Monocytes 0.3 10^3/uL (0.0-1.1); ABS Nucleated RBC 0.01 10^3/ul; Eosinophil % 5.1 %; Hematocrit 36.4 % (38-53); Hemoglobin 12.7 g/dL (13.2-16.3); Mean Corpuscular Hemoglobin 32.6 pg (27-33); Mean Corpuscular Hgb Conc 34.8 g/dL (31-36); Mean Corpuscular Volume 93.7 fL (80-97); Nucleated Red Blood Cells % 0.1 /100 WBC (0.0-0.4); Platelet Count 111 10^3/uL (150-450); Red Blood Count 3.89 10^6/uL (4.06-5.63); Red Cell Distribution Width 14.7 % (12-17); White Blood Count 4.2 10^3/uL (3.6-10.2)
[2023-01-15 07:01] LABS: Calcium 8.9 mg/dL (8.6-10.3); Creatinine, Serum 0.95 mg/dL (0.67-1.17); Magnesium 1.9 mg/dL (1.9-2.7); Potassium 4.5 mmol/L (3.5-5.0)
[2023-01-15] MEDS: HYDROmorphone 0.5 MG/0.5 ML SYRINGE IV PRN ×5 (08:22→20:56)
[2023-01-15] MEDS: Nicotine GUM 2MG FRUIT FLAVOR PO PRN ×3 (08:24→23:24)
[2023-01-15] MEDS: Multivitamins/Minerals TAB PO SCH (08:24)
[2023-01-15] MEDS: Enoxaparin 40 MG/0.4 ML SYR SUBCUT SCH (16:53)
[2023-01-16] MEDS: HYDROmorphone 0.5 MG/0.5 ML SYRINGE IV PRN ×7 (00:40→23:26)
[2023-01-16] MEDS: LORazepam 2 mg VIAL 1 ml IV PUSH PRN ×8 (01:52→20:04)
[2023-01-16] MEDS: Morphine 2 MG/ML SYRINGE IV PRN ×5 (03:12→21:55)
[2023-01-16] MEDS: Ondansetron 4 mg VIAL 2 MG/ML 2 ml VIAL IV PRN ×5 (03:12→23:37)
[2023-01-16] MEDS: Nicotine GUM 2MG FRUIT FLAVOR PO PRN ×7 (03:20→23:25)
[2023-01-16 06:02] LABS: Hematocrit 36.2 % (38-53); Hemoglobin 12.4 g/dL (13.2-16.3); Mean Corpuscular Hemoglobin 32.1 pg (27-33); Mean Corpuscular Hgb Conc 34.3 g/dL (31-36); Mean Corpuscular Volume 93.8 fL (80-97); Mean Platelet Volume 8.2 fL (7.5-11.2); Platelet Count 124 10^3/uL (150-450); Red Blood Count 3.86 10^6/uL (4.06-5.63); Red Cell Distribution Width 14.7 % (12-17); White Blood Count 4.1 10^3/uL (3.6-10.2)
[2023-01-16 06:12] LABS: Calcium 9.7 mg/dL (8.6-10.3); Magnesium 1.8 mg/dL (1.9-2.7); Potassium 4.4 mmol/L (3.5-5.0)
[2023-01-16] MEDS: Lactated Ringers 1000 ml BAG 1,000 ML IV SCH ×3 (06:18→23:37)
[2023-01-16] MEDS ORDERED: Magnesium Sulfate 2 gm BAG 2 GM/50 ML BAG IVPB ONE (07:22)
[2023-01-16] MEDS: Multivitamins/Minerals TAB PO SCH (07:34)
[2023-01-16] MEDS ORDERED: Polyethylene Glycol 3350 17 GM PACKET PO PRN (08:14)
[2023-01-16] MEDS: Enoxaparin 40 MG/0.4 ML SYR SUBCUT SCH (17:26)
[2023-01-16] MEDS: Prochlorperazine 5 mg/ml 2 ml VIAL (10 mg) IV PRN (20:51)
[2023-01-17] MEDS: HYDROmorphone 0.5 MG/0.5 ML SYRINGE IV PRN ×9 (03:07→23:43)
[2023-01-17] MEDS: Morphine 2 MG/ML SYRINGE IV PRN ×5 (05:25→22:29)
[2023-01-17] MEDS: Nicotine GUM 2MG FRUIT FLAVOR PO PRN ×7 (05:31→22:28)
[2023-01-17 05:54] LABS: ABS Basophils 0.1 10^3/uL (0.0-0.1); ABS Eosinophils 0.3 10^3/uL (0.0-0.5); ABS Lymphocytes 2.1 10^3/uL (1.0-4.8); ABS Monocytes 0.5 10^3/uL (0.0-1.1); ABS Neutrophils 1.6 10^3/uL (1.5-7.6); Eosinophil % 6.4 %; Hematocrit 34.8 % (38-53); Hemoglobin 12.1 g/dL (13.2-16.3); Lymphocyte % 47.3 %; Mean Corpuscular Hemoglobin 32.9 pg (27-33); Mean Corpuscular Hgb Conc 34.7 g/dL (31-36); Mean Corpuscular Volume 94.7 fL (80-97); Mean Platelet Volume 8.1 fL (7.5-11.2); Nucleated Red Blood Cells % 0.1 /100 WBC (0.0-0.4); Platelet Count 134 10^3/uL (150-450); Red Blood Count 3.68 10^6/uL (4.06-5.63); Red Cell Distribution Width 15.1 % (12-17); White Blood Count 4.5 10^3/uL (3.6-10.2)
[2023-01-17 06:13] LABS: Calcium 8.9 mg/dL (8.6-10.3); Creatinine, Serum 1.09 mg/dL (0.67-1.17); Potassium 4.5 mmol/L (3.5-5.0); eGFR CKD-EPI 84.8 (>60)
[2023-01-17] MEDS: Lactated Ringers 1000 ml BAG 1,000 ML IV SCH ×2 (07:47→16:09)
[2023-01-17] MEDS ORDERED: LORazepam 2 mg VIAL 1 ml IV PUSH PRN (07:51)
[2023-01-17] MEDS: Multivitamins/Minerals TAB PO SCH (08:16)
[2023-01-17] MEDS: Ondansetron 4 mg VIAL 2 MG/ML 2 ml VIAL IV PRN ×4 (08:16→21:37)
[2023-01-17] MEDS: Prochlorperazine 5 mg/ml 2 ml VIAL (10 mg) IV PRN ×2 (10:15→18:48)
[2023-01-17] MEDS: Enoxaparin 40 MG/0.4 ML SYR SUBCUT SCH (17:43)
[2023-01-18] MEDS: Nicotine GUM 2MG FRUIT FLAVOR PO PRN ×6 (00:33→22:11)
[2023-01-18] MEDS: Lactated Ringers 1000 ml BAG 1,000 ML IV SCH ×4 (00:34→23:54)
[2023-01-18] MEDS: HYDROmorphone 0.5 MG/0.5 ML SYRINGE IV PRN ×3 (01:56→07:19)
[2023-01-18] MEDS: Morphine 2 MG/ML SYRINGE IV PRN ×5 (02:46→22:03)
[2023-01-18] MEDS: Ondansetron 4 mg VIAL 2 MG/ML 2 ml VIAL IV PRN ×4 (04:12→17:49)
[2023-01-18 06:54] LABS: ABS Eosinophils 0.3 10^3/uL (0.0-0.5); ABS Lymphocytes 2.3 10^3/uL (1.0-4.8); ABS Monocytes 0.6 10^3/uL (0.0-1.1); ABS Neutrophils 1.4 10^3/uL (1.5-7.6); ABS Nucleated RBC 0.01 10^3/ul; Eosinophil % 5.9 %; Hematocrit 32.4 % (38-53); Hemoglobin 11.2 g/dL (13.2-16.3); Lymphocyte % 48.9 %; Mean Corpuscular Hemoglobin 32.7 pg (27-33); Mean Corpuscular Hgb Conc 34.6 g/dL (31-36); Mean Corpuscular Volume 94.3 fL (80-97); Mean Platelet Volume 8.2 fL (7.5-11.2); Nucleated Red Blood Cells % 0.1 /100 WBC (0.0-0.4); Platelet Count 148 10^3/uL (150-450); Red Blood Count 3.44 10^6/uL (4.06-5.63); Red Cell Distribution Width 14.7 % (12-17); White Blood Count 4.6 10^3/uL (3.6-10.2)
[2023-01-18 07:12] LABS: Albumin 3.5 g/dL (3.2-5.2); Albumin/Globulin Ratio 1.4 (1-3); Calcium 8.7 mg/dL (8.6-10.3); Creatinine, Serum 1.11 mg/dL (0.67-1.17); Globulin 2.5 g/dL (2-4); Magnesium 1.8 mg/dL (1.9-2.7); Potassium 4.5 mmol/L (3.5-5.0); Total Bilirubin 0.4 mg/dL (0.2-1.0); eGFR CKD-EPI 82.9 (>60)
[2023-01-18] MEDS ORDERED: Magnesium Sulfate 2 gm BAG 2 GM/50 ML BAG IVPB ONE (07:30)
[2023-01-18] MEDS: Multivitamins/Minerals TAB PO SCH (08:40)
[2023-01-18] MEDS ORDERED: Morphine 4 MG/ML VIAL (1 ml) IV PRN ×2 (08:45→08:48)
[2023-01-18] MEDS ORDERED: Influenza vaccine *QUAD* *2023-24* 0.5 ML SYRINGE IM ONE (09:00)
[2023-01-18] MEDS: Prochlorperazine 5 mg/ml 2 ml VIAL (10 mg) IV PRN ×2 (10:38→21:33)
[2023-01-18] MEDS ORDERED: Naloxone 0.4 mg VIAL 0.4 mg/ml 1 ml VIAL IV PUSH PRN (11:18)
[2023-01-18] MEDS: Morphine 4 MG/ML VIAL (1 ml) IV PRN ×4 (12:32→23:51)
[2023-01-18] MEDS: Enoxaparin 40 MG/0.4 ML SYR SUBCUT SCH (17:49)
[2023-01-19] MEDS: Morphine 2 MG/ML SYRINGE IV PRN (02:21)
[2023-01-19] MEDS: Ondansetron 4 mg VIAL 2 MG/ML 2 ml VIAL IV PRN ×4 (02:27→21:56)
[2023-01-19] MEDS: Nicotine GUM 2MG FRUIT FLAVOR PO PRN ×4 (02:27→15:34)
[2023-01-19] MEDS: Morphine 4 MG/ML VIAL (1 ml) IV PRN ×6 (04:56→23:25)
[2023-01-19 06:16] LABS: ABS Eosinophils 0.2 10^3/uL (0.0-0.5); ABS Lymphocytes 1.7 10^3/uL (1.0-4.8); ABS Monocytes 0.6 10^3/uL (0.0-1.1); ABS Neutrophils 1.4 10^3/uL (1.5-7.6); ABS Nucleated RBC 0.01 10^3/ul; Eosinophil % 5.7 %; Hematocrit 33.7 % (38-53); Hemoglobin 11.6 g/dL (13.2-16.3); Lymphocyte % 43.6 %; Mean Corpuscular Hemoglobin 32.7 pg (27-33); Mean Corpuscular Hgb Conc 34.5 g/dL (31-36); Mean Corpuscular Volume 94.7 fL (80-97); Mean Platelet Volume 8.9 fL (7.5-11.2); Nucleated Red Blood Cells % 0.2 /100 WBC (0.0-0.4); Platelet Count 181 10^3/uL (150-450); Red Blood Count 3.56 10^6/uL (4.06-5.63); Red Cell Distribution Width 15.2 % (12-17)
[2023-01-19 06:25] LABS: Calcium 8.8 mg/dL (8.6-10.3); Creatinine, Serum 1.19 mg/dL (0.67-1.17); Potassium 4.9 mmol/L (3.5-5.0); eGFR CKD-EPI 76.3 (>60)
[2023-01-19] MEDS: Lactated Ringers 1000 ml BAG 1,000 ML IV SCH ×3 (08:54→23:32)
[2023-01-19] MEDS: Multivitamins/Minerals TAB PO SCH (10:39)
[2023-01-19] MEDS: Prochlorperazine 5 mg/ml 2 ml VIAL (10 mg) IV PRN (15:25)
[2023-01-19] MEDS: Enoxaparin 40 MG/0.4 ML SYR SUBCUT SCH (16:55)
[2023-01-20] MEDS: Ondansetron 4 mg VIAL 2 MG/ML 2 ml VIAL IV PRN ×4 (04:01→16:12)
[2023-01-20] MEDS: Morphine 4 MG/ML VIAL (1 ml) IV PRN ×6 (04:02→20:30)
[2023-01-20 06:29] LABS: ABS Eosinophils 0.2 10^3/uL (0.0-0.5); ABS Lymphocytes 1.5 10^3/uL (1.0-4.8); ABS Monocytes 0.7 10^3/uL (0.0-1.1); ABS Neutrophils 1.6 10^3/uL (1.5-7.6); Eosinophil % 5.4 %; Hematocrit 33.9 % (38-53); Hemoglobin 11.7 g/dL (13.2-16.3); Lymphocyte % 37.1 %; Mean Corpuscular Hemoglobin 32.8 pg (27-33); Mean Corpuscular Hgb Conc 34.7 g/dL (31-36); Mean Corpuscular Volume 94.8 fL (80-97); Mean Platelet Volume 8.4 fL (7.5-11.2); Nucleated Red Blood Cells % 0.1 /100 WBC (0.0-0.4); Platelet Count 220 10^3/uL (150-450); Red Blood Count 3.57 10^6/uL (4.06-5.63)
[2023-01-20 06:54] LABS: Calcium 9.1 mg/dL (8.6-10.3); Creatinine, Serum 1.26 mg/dL (0.67-1.17); Magnesium 1.9 mg/dL (1.9-2.7); Potassium 4.4 mmol/L (3.5-5.0); eGFR CKD-EPI 71.2 (>60)
[2023-01-20] MEDS: Lactated Ringers 1000 ml BAG 1,000 ML IV SCH ×3 (07:08→22:31)
[2023-01-20] MEDS: Multivitamins/Minerals TAB PO SCH (08:19)
[2023-01-20] MEDS: Nicotine GUM 2MG FRUIT FLAVOR PO PRN (08:20)
[2023-01-20] MEDS: Prochlorperazine 5 mg/ml 2 ml VIAL (10 mg) IV PRN ×3 (10:03→23:59)
[2023-01-20] MEDS: Enoxaparin 40 MG/0.4 ML SYR SUBCUT SCH (17:40)
[2023-01-20] MEDS: Ondansetron ODT 4 mg TAB 4 MG TAB SL PRN (20:29)
[2023-01-21] MEDS: Morphine 4 MG/ML VIAL (1 ml) IV PRN ×7 (00:05→22:29)
[2023-01-21 06:00] LABS: ABS Basophils 0.1 10^3/uL (0.0-0.1); ABS Eosinophils 0.2 10^3/uL (0.0-0.5); ABS Lymphocytes 1.4 10^3/uL (1.0-4.8); ABS Monocytes 0.7 10^3/uL (0.0-1.1); Eosinophil % 4.1 %; Hematocrit 36.3 % (38-53); Hemoglobin 12.4 g/dL (13.2-16.3); Lymphocyte % 32.1 %; Mean Corpuscular Hemoglobin 32.2 pg (27-33); Mean Corpuscular Hgb Conc 34.1 g/dL (31-36); Mean Corpuscular Volume 94.5 fL (80-97); Mean Platelet Volume 8.4 fL (7.5-11.2); Nucleated Red Blood Cells % 0.1 /100 WBC (0.0-0.4); Platelet Count 261 10^3/uL (150-450); Red Blood Count 3.84 10^6/uL (4.06-5.63); Red Cell Distribution Width 15.1 % (12-17); White Blood Count 4.3 10^3/uL (3.6-10.2)
[2023-01-21] MEDS: Ondansetron ODT 4 mg TAB 4 MG TAB SL PRN ×2 (06:05→12:38)
[2023-01-21] MEDS: Lactated Ringers 1000 ml BAG 1,000 ML IV SCH ×2 (06:06→16:17)
[2023-01-21 06:34] LABS: Calcium 9.5 mg/dL (8.6-10.3); Creatinine, Serum 1.24 mg/dL (0.67-1.17); Magnesium 1.9 mg/dL (1.9-2.7); Potassium 4.5 mmol/L (3.5-5.0); eGFR CKD-EPI 72.6 (>60)
[2023-01-21] MEDS ORDERED: Magnesium Sulfate IV 1GM/100ML 1 GM/100 ML BAG IV ONE (07:28)
[2023-01-21] MEDS: Multivitamins/Minerals TAB PO SCH (09:29)
[2023-01-21] MEDS: Nicotine GUM 2MG FRUIT FLAVOR PO PRN ×5 (09:38→23:17)
[2023-01-21] MEDS: Enoxaparin 40 MG/0.4 ML SYR SUBCUT SCH (18:19)
[2023-01-22] MEDS: Lactated Ringers 1000 ml BAG 1,000 ML IV SCH ×3 (00:13→16:41)
[2023-01-22] MEDS: Morphine 4 MG/ML VIAL (1 ml) IV PRN ×2 (02:35→06:27)
[2023-01-22] MEDS: Nicotine GUM 2MG FRUIT FLAVOR PO PRN (02:49)
[2023-01-22 06:25] LABS: ABS Basophils 0.1 10^3/uL (0.0-0.1); ABS Eosinophils 0.2 10^3/uL (0.0-0.5); ABS Lymphocytes 1.5 10^3/uL (1.0-4.8); ABS Monocytes 0.6 10^3/uL (0.0-1.1); ABS Neutrophils 2.1 10^3/uL (1.5-7.6); ABS Nucleated RBC 0.01 10^3/ul; Eosinophil % 3.6 %; Hematocrit 37.6 % (38-53); Hemoglobin 12.9 g/dL (13.2-16.3); Lymphocyte % 32.7 %; Mean Corpuscular Hemoglobin 32.6 pg (27-33); Mean Corpuscular Hgb Conc 34.4 g/dL (31-36); Mean Corpuscular Volume 94.8 fL (80-97); Mean Platelet Volume 8.4 fL (7.5-11.2); Nucleated Red Blood Cells % 0.1 /100 WBC (0.0-0.4); Platelet Count 303 10^3/uL (150-450); Red Blood Count 3.97 10^6/uL (4.06-5.63); Red Cell Distribution Width 14.9 % (12-17); White Blood Count 4.5 10^3/uL (3.6-10.2)
[2023-01-22 06:44] LABS: Calcium 9.7 mg/dL (8.6-10.3); Creatinine, Serum 1.08 mg/dL (0.67-1.17); Potassium 4.8 mmol/L (3.5-5.0); eGFR CKD-EPI 85.7 (>60)
[2023-01-22] MEDS: Multivitamins/Minerals TAB PO SCH (08:33)
[2023-01-22] MEDS: Morphine 10 MG/ML VIAL (1 ml) IV PRN ×5 (10:19→23:44)
[2023-01-22] MEDS: Sucralfate 1 gm SUSP 1 GM/10 ML UDC PO SCH ×3 (11:42→20:37)
[2023-01-22] MEDS: Ondansetron ODT 4 mg TAB 4 MG TAB SL PRN (16:40)
[2023-01-22] MEDS: Enoxaparin 40 MG/0.4 ML SYR SUBCUT SCH (18:10)
[2023-01-23] MEDS: Lactated Ringers 1000 ml BAG 1,000 ML IV SCH ×4 (00:20→23:19)
[2023-01-23] MEDS: Morphine 10 MG/ML VIAL (1 ml) IV PRN ×7 (02:56→21:42)
[2023-01-23] MEDS: Ondansetron ODT 4 mg TAB 4 MG TAB SL PRN ×2 (02:56→08:01)
[2023-01-23 06:50] LABS: ABS Eosinophils 0.1 10^3/uL (0.0-0.5); ABS Lymphocytes 1.8 10^3/uL (1.0-4.8); ABS Monocytes 0.9 10^3/uL (0.0-1.1); ABS Neutrophils 2.6 10^3/uL (1.5-7.6); Eosinophil % 2.3 %; Hematocrit 33.1 % (38-53); Hemoglobin 11.6 g/dL (13.2-16.3); Lymphocyte % 33.4 %; Mean Corpuscular Hemoglobin 32.5 pg (27-33); Mean Corpuscular Hgb Conc 35.1 g/dL (31-36); Mean Corpuscular Volume 92.7 fL (80-97); Mean Platelet Volume 8.6 fL (7.5-11.2); Platelet Count 312 10^3/uL (150-450); Red Blood Count 3.57 10^6/uL (4.06-5.63); Red Cell Distribution Width 14.6 % (12-17); White Blood Count 5.5 10^3/uL (3.6-10.2)
[2023-01-23 07:15] LABS: Creatinine, Serum 0.95 mg/dL (0.67-1.17); Potassium 4.2 mmol/L (3.5-5.0)
[2023-01-23] MEDS: Sucralfate 1 gm SUSP 1 GM/10 ML UDC PO SCH ×4 (07:42→20:34)
[2023-01-23] MEDS: Nicotine GUM 2MG FRUIT FLAVOR PO PRN (07:43)
[2023-01-23] MEDS: Multivitamins/Minerals TAB PO SCH (09:25)
[2023-01-23] MEDS: Enoxaparin 40 MG/0.4 ML SYR SUBCUT SCH (16:59)
[2023-01-24] MEDS: Morphine 10 MG/ML VIAL (1 ml) IV PRN ×3 (01:02→08:17)
[2023-01-24 06:10] LABS: ABS Eosinophils 0.1 10^3/uL (0.0-0.5); ABS Lymphocytes 2.3 10^3/uL (1.0-4.8); ABS Monocytes 0.7 10^3/uL (0.0-1.1); ABS Neutrophils 2.1 10^3/uL (1.5-7.6); Eosinophil % 2.5 %; Hematocrit 30.8 % (38-53); Hemoglobin 10.7 g/dL (13.2-16.3); Mean Corpuscular Hemoglobin 32.5 pg (27-33); Mean Corpuscular Hgb Conc 34.6 g/dL (31-36); Mean Corpuscular Volume 94.1 fL (80-97); Mean Platelet Volume 8.6 fL (7.5-11.2); Nucleated Red Blood Cells % 0.1 /100 WBC (0.0-0.4); Platelet Count 294 10^3/uL (150-450); Red Blood Count 3.28 10^6/uL (4.06-5.63); Red Cell Distribution Width 14.5 % (12-17); White Blood Count 5.3 10^3/uL (3.6-10.2)
[2023-01-24 06:35] LABS: Calcium 8.9 mg/dL (8.6-10.3); Creatinine, Serum 0.88 mg/dL (0.67-1.17); Magnesium 1.8 mg/dL (1.9-2.7); eGFR CKD-EPI 107.4 (>60)
[2023-01-24] MEDS: Lactated Ringers 1000 ml BAG 1,000 ML IV SCH ×3 (06:49→22:50)
[2023-01-24] MEDS ORDERED: Magnesium Sulfate 2 gm BAG 2 GM/50 ML BAG IVPB ONE (07:16)
[2023-01-24] MEDS: Sucralfate 1 gm SUSP 1 GM/10 ML UDC PO SCH ×4 (08:18→21:03)
[2023-01-24] MEDS: Multivitamins/Minerals TAB PO SCH (08:21)
[2023-01-24] MEDS ORDERED: Buprenorphine 2 mg SL TAB SL ONE ×3 (10:43→14:00)
[2023-01-24] MEDS ORDERED: Buprenorphine 2 mg SL TAB SL PRN ×2 (11:30→15:00)
[2023-01-24] MEDS: Prochlorperazine 5 mg/ml 2 ml VIAL (10 mg) IV PRN (14:20)
[2023-01-24] MEDS ORDERED: Iohexol 300 (CONTRAST) 10 ML SDV IV ONE (14:48)
[2023-01-24] MEDS: Enoxaparin 40 MG/0.4 ML SYR SUBCUT SCH (17:44)
[2023-01-25 06:08] LABS: ABS Eosinophils 0.2 10^3/uL (0.0-0.5); ABS Lymphocytes 2.1 10^3/uL (1.0-4.8); ABS Monocytes 0.8 10^3/uL (0.0-1.1); ABS Neutrophils 3.5 10^3/uL (1.5-7.6); ABS Nucleated RBC 0.01 10^3/ul; Eosinophil % 2.6 %; Hematocrit 32.2 % (38-53); Hemoglobin 11.1 g/dL (13.2-16.3); Lymphocyte % 31.7 %; Mean Corpuscular Hemoglobin 32.2 pg (27-33); Mean Corpuscular Hgb Conc 34.4 g/dL (31-36); Mean Corpuscular Volume 93.6 fL (80-97); Mean Platelet Volume 8.9 fL (7.5-11.2); Nucleated Red Blood Cells % 0.1 /100 WBC (0.0-0.4); Platelet Count 344 10^3/uL (150-450); Red Blood Count 3.44 10^6/uL (4.06-5.63); Red Cell Distribution Width 14.9 % (12-17); White Blood Count 6.6 10^3/uL (3.6-10.2)
[2023-01-25 06:22] LABS: Calcium 8.8 mg/dL (8.6-10.3); Creatinine, Serum 0.82 mg/dL (0.67-1.17); Magnesium 1.8 mg/dL (1.9-2.7); Potassium 3.8 mmol/L (3.5-5.0); eGFR CKD-EPI 109.7 (>60)
[2023-01-25] MEDS: Lactated Ringers 1000 ml BAG 1,000 ML IV SCH ×4 (06:26→23:43)
[2023-01-25] MEDS ORDERED: Magnesium Sulfate 2 gm BAG 2 GM/50 ML BAG IVPB ONE (07:23)
[2023-01-25] MEDS ORDERED: Potassium Chlor 20 meq TAB.ER PO ONE (07:24)
[2023-01-25] MEDS: Multivitamins/Minerals TAB PO SCH (09:38)
[2023-01-25] MEDS: Sucralfate 1 gm SUSP 1 GM/10 ML UDC PO SCH ×4 (09:41→20:05)
[2023-01-25] MEDS ORDERED: Naloxone Nasal Spray 4 MG/0.1 ML NASAL.SPR INTRANASAL PRN (12:24)
[2023-01-25] MEDS: Enoxaparin 40 MG/0.4 ML SYR SUBCUT SCH (18:30)
[2023-01-26 06:12] LABS: ABS Eosinophils 0.1 10^3/uL (0.0-0.5); ABS Lymphocytes 2.6 10^3/uL (1.0-4.8); ABS Monocytes 0.6 10^3/uL (0.0-1.1); ABS Neutrophils 3.3 10^3/uL (1.5-7.6); ABS Nucleated RBC 0.01 10^3/ul; Eosinophil % 2.2 %; Hemoglobin 11.6 g/dL (13.2-16.3); Lymphocyte % 38.3 %; Mean Corpuscular Hemoglobin 32.1 pg (27-33); Mean Corpuscular Hgb Conc 34.1 g/dL (31-36); Mean Corpuscular Volume 94.3 fL (80-97); Mean Platelet Volume 8.8 fL (7.5-11.2); Nucleated Red Blood Cells % 0.1 /100 WBC (0.0-0.4); Platelet Count 345 10^3/uL (150-450); Red Blood Count 3.61 10^6/uL (4.06-5.63); Red Cell Distribution Width 14.8 % (12-17); White Blood Count 6.8 10^3/uL (3.6-10.2)
[2023-01-26 06:40] LABS: Calcium 8.8 mg/dL (8.6-10.3); Creatinine, Serum 0.85 mg/dL (0.67-1.17); Magnesium 1.8 mg/dL (1.9-2.7); Potassium 3.8 mmol/L (3.5-5.0); eGFR CKD-EPI 108.5 (>60)
[2023-01-26] MEDS ORDERED: Magnesium Sulfate 2 gm BAG 2 GM/50 ML BAG IVPB ONE (07:34)
[2023-01-26] MEDS ORDERED: Potassium Chlor 20 meq TAB.ER PO ONE (07:34)
[2023-01-26] MEDS: Lactated Ringers 1000 ml BAG 1,000 ML IV SCH (08:10)
[2023-01-26] MEDS ORDERED: Buprenorphine 2 mg SL TAB SL ONE (08:30)
[2023-01-26] MEDS: Multivitamins/Minerals TAB PO SCH (08:42)
[2023-01-26] MEDS: Sucralfate 1 gm SUSP 1 GM/10 ML UDC PO SCH ×2 (08:42→12:09)
[2023-01-26] MEDS: Buprenorphine 2 mg SL TAB SL PRN ×3 (09:32→12:09)
[2023-01-26 10:46] VITALS: BP 101/63
== END 2023-01-26 13:30 | disposition home or self-care (01) | DRG 282 ==
LOC: ED 09:10 → SUATTDRO 13:31 → EDHOLD 13:31 → MEDTELE 14:27 → MED 14:51
PROVIDERS: ADMIT Student in an Organized Health Care Education/Training Program; ATTEND Internal Medicine

== ENCOUNTER 2023-03-05 22:17 | Inpatient (IN) ==
[2023-03-05] MEDS ORDERED: Lactated Ringers 1000 ml BAG 1,000 ML IV ONE (22:34)
[2023-03-05 23:21] LABS: ABS Basophils 0.1 10^3/uL (0.0-0.1); ABS Lymphocytes 1.3 10^3/uL (1.0-4.8); ABS Neutrophils 5.7 10^3/uL (1.5-7.6); ABS Nucleated RBC 0.01 10^3/ul; Hematocrit 46.8 % (38-53); Hemoglobin 16.3 g/dL (13.2-16.3); Lymphocyte % 16.3 %; Mean Corpuscular Hemoglobin 32.6 pg (27-33); Mean Corpuscular Hgb Conc 34.8 g/dL (31-36); Mean Corpuscular Volume 93.6 fL (80-97); Mean Platelet Volume 7.7 fL (7.5-11.2); Nucleated Red Blood Cells % 0.1 %/100WBC (0.0-0.8); Platelet Count 188 10^3/uL (150-450); Red Cell Distribution Width 16.6 % (12-17)
[2023-03-05 23:37] LABS: Albumin 5.3 g/dL (3.2-5.2); Albumin/Globulin Ratio 1.4 (1-3); Calcium 10.9 mg/dL (8.6-10.3); Creatinine, Serum 1.34 mg/dL (0.67-1.17); Globulin 3.9 g/dL (2-4); Potassium 3.7 mmol/L (3.5-5.0); Total Protein 9.2 g/dL (6.4-8.9); eGFR CKD-EPI 66.2 (>60)
[2023-03-06] MEDS ORDERED: Lorazepam PYXIS KEY PRN ×3 (00:14→01:38)
[2023-03-06] MEDS ORDERED: LORazepam 2 mg VIAL 1 ml IV PUSH ONE ×3 (00:14→01:38)
[2023-03-06] MEDS ORDERED: Thiamine 100 MG/ML 2 ml VIAL (200 mg) IM ONE (00:51)
[2023-03-06] MEDS ORDERED: Thiamine 100 MG/ML 2 ml VIAL 100 MG, Folic Acid IV 1 MG, Multiple Vitamin IV ADULT 10 M... IV ONE (00:55)
[2023-03-06] MEDS ORDERED: LORazepam 2 mg VIAL 1 ml IV PUSH SCH (01:00)
[2023-03-06] MEDS ORDERED: diazePAM INJ CARPUJECT 5 MG/ML SYRINGE IV ONE ×3 (01:24→02:23)
[2023-03-06] MEDS ORDERED: Dexmedetomidine 1,000 MCG in NS 0.9% 250 ml 240 ML IV SCH (02:00)
[2023-03-06] MEDS ORDERED: Succinylcholine 200 mg VIAL 20 mg/ml 10 ml VIAL (200 mg) IV ONE (02:05)
[2023-03-06] MEDS ORDERED: Etomidate 20 mg/10 ml 2 MG/ML 10 ml VIAL IV ONE (02:05)
[2023-03-06] MEDS ORDERED: Propofol 10 mg/ml 100 ML BTL 1,000 MG/100 ML BTL ONE (02:08)
[2023-03-06] MEDS ORDERED: Midazolam 10 mg/10 ml VIAL 1 mg/ml 10 ml VIAL (10 mg) ONE (02:24)
[2023-03-06] MEDS ORDERED: Propofol 10 MG/ML 20 ML BTL IV PUSH ONE (02:29)
[2023-03-06 02:32] LABS: Alcohol, S < 13 mg/dL (<13)
[2023-03-06] MEDS: Lactated Ringers 1000 ml BAG 1,000 ML IV SCH ×2 (02:57→03:27)
[2023-03-06 03:05] LABS: TSH Ultra Thyroid Stim Horm 2.02 mcIU/mL (0.34-5.60)
[2023-03-06 03:24] LABS: Urine Appearance Cloudy; Urine Bilirubin 1+ (Negative); Urine Blood Negative (Negative); Urine Color Amber; Urine Glucose Negative (Negative); Urine Ketones 1+ (Negative); Urine Nitrite Negative (Negative); Urine Protein 3+(>=500 mg/dL) (Negative); Urine Specific Gravity 1.031 (1.002-1.030); Urine Urobilinogen Negative (Negative)
[2023-03-06 03:30] LABS: Urine Bacteria Absent (Absent); Urine Red Blood Cell Trace(0-2/hpf) (Absent); Urine Squamous Epithelial Cell Present (Absent); Urine White Blood Cell 1+(6-10/hpf) (Absent)
[2023-03-06] MEDS: Propofol 10 mg/ml 100 ML BTL 1,000 MG/100 ML BTL IV SCH ×4 (03:36→23:24)
[2023-03-06 03:42] LABS: Urine Benzodiazepine Screen Presumptive Positive (None Detect); Urine Cannabinoids Screen None Detected (None Detect); Urine Opiates Screen None Detected (None Detect)
[2023-03-06 04:13] LABS: PCO2 Arterial 36 mmHg (35-45); PO2 Arterial 433 mmHg (80-100)
[2023-03-06 04:40] LABS: ABS Lymphocytes 1.3 10^3/uL (1.0-4.8); ABS Monocytes 0.8 10^3/uL (0.0-1.1); ABS Nucleated RBC 0.01 10^3/ul; Eosinophil % 0.2 %; Lymphocyte % 21.6 %; Mean Corpuscular Hemoglobin 32.3 pg (27-33); Mean Corpuscular Hgb Conc 34.1 g/dL (31-36); Mean Corpuscular Volume 94.7 fL (80-97); Mean Platelet Volume 7.9 fL (7.5-11.2); Nucleated Red Blood Cells % 0.1 %/100WBC (0.0-0.8); Platelet Count 150 10^3/uL (150-450); Red Blood Count 4.33 10^6/uL (4.06-5.63); Red Cell Distribution Width 16.6 % (12-17); White Blood Count 6.2 10^3/uL (3.6-10.2)
[2023-03-06] MEDS ORDERED: Lactated Ringers 1000 ml BAG 1,000 ML IV SCH (05:00)
[2023-03-06 05:02] LABS: Phosphorus 4.4 mg/dL (2.5-5.0)
[2023-03-06 05:05] LABS: Albumin 4.3 g/dL (3.2-5.2); Albumin/Globulin Ratio 1.3 (1-3); Calcium 9.8 mg/dL (8.6-10.3); Creatinine, Serum 1.24 mg/dL (0.67-1.17); Globulin 3.3 g/dL (2-4); Magnesium 1.5 mg/dL (1.9-2.7); Potassium 3.1 mmol/L (3.5-5.0); Total Bilirubin 1.2 mg/dL (0.2-1.0); Total Protein 7.6 g/dL (6.4-8.9); eGFR CKD-EPI 72.6 (>60)
[2023-03-06] MEDS ORDERED: Magnesium Sulf 4 GM/100 ML IV 4,000 MG/100 ML BAG IVPB ONE (05:18)
[2023-03-06 05:33] LABS: Amylase 30 U/L (29-103); Creatine Kinase 231 U/L (10-223); Lipase < 10 U/L (11.0-82.0)
[2023-03-06] MEDS: Pantoprazole VIAL 40 MG VIAL IV SCH (05:47)
[2023-03-06] MEDS: Chlorhexidine MOUTHWASH 0.12% 15 ML UDC TOPICAL SCH ×5 (06:13→20:45)
[2023-03-06] MEDS: KCL 20 MEQ/100 ML IVPREMIX 20 MEQ/100 ML BAG IV SCH ×2 (07:17→09:28)
[2023-03-06] MEDS ORDERED: LORazepam 2 mg VIAL 1 ml ONE (08:23)
[2023-03-06] MEDS ORDERED: Multivitamins/Minerals TAB PO SCH ×2 (09:00)
[2023-03-06] MEDS ORDERED: Lactated Ringers 1000 ml BAG 500 ML IV ONE (09:34)
[2023-03-06] MEDS ORDERED: Multivitamins ADULT w/MIN LIQ 15 ML UDC G TUBE SCH (10:30)
[2023-03-06] MEDS ORDERED: Norepinephrine 4 MG/250mL D5W 4,000 MCG/250 ML BAG IV SCH (11:00)
[2023-03-06] MEDS ORDERED: Norepinephrine 4 MG/250mL D5W 4,000 MCG/250 ML BAG IV ONE (11:00)
[2023-03-06] MEDS: Midazolam PREMIXBAG 1 MG/ML NS 100 ML IV SCH (11:15)
[2023-03-06] MEDS: Multivitamins ADULT w/MIN LIQ 15 ML UDC G TUBE SCH (11:22)
[2023-03-06 16:18] LABS: High Sensitivity Troponin 1 Hr 16 pg/mL (<20)
[2023-03-06] MEDS: LORazepam 2 mg VIAL 1 ml IV PUSH SCH (17:35)
[2023-03-06] MEDS ORDERED: Dextrose 50% Syringe 50 ml 25 GM/50 ML SYRINGE IV PUSH PRN (21:11)
[2023-03-07] MEDS: Chlorhexidine MOUTHWASH 0.12% 15 ML UDC TOPICAL SCH ×6 (01:20→22:12)
[2023-03-07] MEDS: LORazepam 2 mg VIAL 1 ml IV PUSH SCH (01:35)
[2023-03-07] MEDS: Propofol 10 mg/ml 100 ML BTL 1,000 MG/100 ML BTL IV SCH ×5 (04:20→21:11)
[2023-03-07] MEDS: D5LR 1000 ml BAG 1,000 ML IV SCH ×3 (05:57→22:11)
[2023-03-07 06:48] LABS: ABS Eosinophils 0.1 10^3/uL (0.0-0.5); ABS Lymphocytes 1.8 10^3/uL (1.0-4.8); ABS Monocytes 0.6 10^3/uL (0.0-1.1); ABS Neutrophils 2.8 10^3/uL (1.5-7.6); ABS Nucleated RBC 0.01 10^3/ul; Eosinophil % 2.4 %; Hematocrit 38.8 % (38-53); Hemoglobin 13.1 g/dL (13.2-16.3); Lymphocyte % 33.1 %; Mean Corpuscular Hemoglobin 32.1 pg (27-33); Mean Corpuscular Hgb Conc 33.7 g/dL (31-36); Mean Corpuscular Volume 95.3 fL (80-97); Mean Platelet Volume 8.2 fL (7.5-11.2); Nucleated Red Blood Cells % 0.2 %/100WBC (0.0-0.8); Platelet Count 134 10^3/uL (150-450); Red Blood Count 4.07 10^6/uL (4.06-5.63); Red Cell Distribution Width 16.5 % (12-17); White Blood Count 5.3 10^3/uL (3.6-10.2)
[2023-03-07 08:13] LABS: ALT 15 U/L (7-52); Albumin 3.9 g/dL (3.2-5.2); Albumin/Globulin Ratio 1.4 (1-3); Alkaline Phosphatase 63 U/L (35-149); Anion Gap 10 mmol/L (2-16); Blood Urea Nitrogen 12 mg/dL (6-24); CO2 Carbon Dioxide 24 mmol/L (22-32); Calcium 8.6 mg/dL (8.6-10.3); Chloride 96 mmol/L (101-111); Creatinine, Serum 0.76 mg/dL (0.67-1.17); Globulin 2.7 g/dL (2-4); Glucose 63 mg/dL (70-100); Sodium 130 mmol/L (135-145); Total Bilirubin 1.2 mg/dL (0.2-1.0); Total Protein 6.6 g/dL (6.4-8.9); eGFR CKD-EPI 112.3 (>60)
[2023-03-07] MEDS: Pantoprazole VIAL 40 MG VIAL IV SCH (08:38)
[2023-03-07] MEDS: Multivitamins ADULT w/MIN LIQ 15 ML UDC G TUBE SCH (08:38)
[2023-03-07] MEDS: Midazolam PREMIXBAG 1 MG/ML NS 100 ML IV SCH (09:49)
[2023-03-07 13:09] LABS: Potassium, Whole Blood 3.2 mmol/L (3.4-4.5)
[2023-03-07] MEDS: Enoxaparin 40 MG/0.4 ML SYR SUBCUT SCH (14:08)
[2023-03-07] MEDS: KCL 20 MEQ/100 ML IVPREMIX 20 MEQ/100 ML BAG IV SCH ×4 (14:08→20:30)
[2023-03-08] MEDS: LORazepam 2 mg VIAL 1 ml IV PUSH SCH ×3 (00:46→07:58)
[2023-03-08] MEDS: Propofol 10 mg/ml 100 ML BTL 1,000 MG/100 ML BTL IV SCH ×3 (01:59→18:17)
[2023-03-08] MEDS: Chlorhexidine MOUTHWASH 0.12% 15 ML UDC TOPICAL SCH ×6 (02:00→22:14)
[2023-03-08] MEDS ORDERED: Labetalol IV 5 MG/ML 20 ml VIAL IV PUSH PRN (04:47)
[2023-03-08] MEDS: Acetaminophen IV 1 GM/100ML 1,000 MG/100 ML BAG IV PRN ×3 (05:09→18:07)
[2023-03-08 06:05] LABS: Hematocrit 36.7 % (38-53); Hemoglobin 13.2 g/dL (13.2-16.3); Mean Corpuscular Hemoglobin 34.4 pg (27-33); Mean Corpuscular Volume 95.4 fL (80-97); Mean Platelet Volume 8.8 fL (7.5-11.2); Platelet Count 153 10^3/uL (150-450); Red Blood Count 3.85 10^6/uL (4.06-5.63); Red Cell Distribution Width 16.4 % (12-17); White Blood Count 6.3 10^3/uL (3.6-10.2)
[2023-03-08 06:22] LABS: ABS Lymphocytes 0.7 10^3/uL (1.0-4.8); ABS Monocytes 0.6 10^3/uL (0.0-1.1); ABS Nucleated RBC 0.03 10^3/ul; Eosinophil % 0.7 %; Lymphocyte % 10.8 %; Nucleated Red Blood Cells % 0.5 %/100WBC (0.0-0.8)
[2023-03-08 07:35] LABS: Anion Gap 7 mmol/L (2-16); Blood Urea Nitrogen 5 mg/dL (6-24); CO2 Carbon Dioxide 23 mmol/L (22-32); Calcium 8.7 mg/dL (8.6-10.3); Chloride 99 mmol/L (101-111); Creatinine, Serum 0.69 mg/dL (0.67-1.17); Glucose 122 mg/dL (70-100); Sodium 129 mmol/L (135-145); eGFR CKD-EPI 115.6 (>60)
[2023-03-08] MEDS: Midazolam PREMIXBAG 1 MG/ML NS 100 ML IV SCH (07:56)
[2023-03-08] MEDS: Multivitamins ADULT w/MIN LIQ 15 ML UDC G TUBE SCH (08:06)
[2023-03-08] MEDS: Pantoprazole VIAL 40 MG VIAL IV SCH (08:06)
[2023-03-08] MEDS ORDERED: Magnesium Sulf 4 GM/100 ML IV 4,000 MG/100 ML BAG IVPB ONE (09:09)
[2023-03-08 09:17] LABS: Potassium, Whole Blood 3.9 mmol/L (3.4-4.5)
[2023-03-08] MEDS ORDERED: Lactated Ringers 1000 ml BAG 1,000 ML IV ONE (13:20)
[2023-03-08] MEDS: Enoxaparin 40 MG/0.4 ML SYR SUBCUT SCH (13:35)
[2023-03-08 16:09] LABS: Blood Urea Nitrogen 8 mg/dL (6-24)
[2023-03-08 16:11] LABS: CO2 Carbon Dioxide 22 mmol/L (22-32); Calcium 7.8 mg/dL (8.6-10.3); Chloride 93 mmol/L (101-111); Creatinine, Serum 0.76 mg/dL (0.67-1.17); Glucose 148 mg/dL (70-100); Sodium 122 mmol/L (135-145); eGFR CKD-EPI 112.3 (>60)
[2023-03-08] MEDS: NS 0.9% 1000 ml BAG 1,000 ML IV SCH (16:47)
[2023-03-08] MEDS ORDERED: Magnesium Hydroxide LIQ 30 ML UDC PO ONE (17:02)
[2023-03-08 19:01] LABS: Anion Gap 7 mmol/L (2-16)
[2023-03-08] MEDS ORDERED: Vancomycin 1,500 MG in NS 0.9% 250 ml 250 ML IVPB ONE (20:00)
[2023-03-08] MEDS ORDERED: Vancomycin per Pharmacy 1 EA NOTE FOLLOW UP PRN (21:25)
[2023-03-08] MEDS: cefTRIAXone 1 gm/50 mL D5W 1 GM/50 ML BAG IV SCH (21:29)
[2023-03-08] MEDS ORDERED: Hyaluronidase HUMAN 15 UNIT in Sodium Chloride 0.9% 0.9 ML INTRADERM ONE (23:16)
[2023-03-09 01:40] LABS: Magnesium 2.1 mg/dL (1.9-2.7); Potassium Redraw 4.1 mmol/L (3.5-5.0)
[2023-03-09 01:41] LABS: Calcium 8.2 mg/dL (8.6-10.3); Creatinine, Serum 0.69 mg/dL (0.67-1.17); Potassium 4.2 mmol/L (3.5-5.0); eGFR CKD-EPI 115.6 (>60)
[2023-03-09] MEDS: Acetaminophen IV 1 GM/100ML 1,000 MG/100 ML BAG IV PRN ×4 (01:47→23:57)
[2023-03-09] MEDS: NS 0.9% 1000 ml BAG 1,000 ML IV SCH (01:47)
[2023-03-09] MEDS: Propofol 10 mg/ml 100 ML BTL 1,000 MG/100 ML BTL IV SCH ×4 (01:53→19:22)
[2023-03-09] MEDS: Chlorhexidine MOUTHWASH 0.12% 15 ML UDC TOPICAL SCH ×6 (02:52→23:58)
[2023-03-09 04:30] LABS: Hematocrit 33.7 % (38-53); Hemoglobin 11.4 g/dL (13.2-16.3); Mean Corpuscular Hemoglobin 32.3 pg (27-33); Mean Corpuscular Hgb Conc 33.7 g/dL (31-36); Mean Corpuscular Volume 95.9 fL (80-97); Mean Platelet Volume 8.6 fL (7.5-11.2); Platelet Count 147 10^3/uL (150-450); Red Blood Count 3.51 10^6/uL (4.06-5.63); Red Cell Distribution Width 16.5 % (12-17); White Blood Count 6.8 10^3/uL (3.6-10.2)
[2023-03-09 04:45] LABS: Creatinine, Serum 0.72 mg/dL (0.67-1.17); eGFR CKD-EPI 114.1 (>60)
[2023-03-09] MEDS: Vancomycin 1000 MG in NS 0.9% 250 ML IVPB SCH ×3 (05:38→23:58)
[2023-03-09] MEDS: Midazolam PREMIXBAG 1 MG/ML NS 100 ML IV SCH (06:22)
[2023-03-09] MEDS: Pantoprazole VIAL 40 MG VIAL IV SCH (08:42)
[2023-03-09] MEDS: Multivitamins ADULT w/MIN LIQ 15 ML UDC G TUBE SCH (08:42)
[2023-03-09] MEDS ORDERED: Magnesium Hydroxide LIQ 30 ML UDC SCH (09:00)
[2023-03-09] MEDS ORDERED: Magnesium Hydroxide LIQ 30 ML UDC ONE (09:06)
[2023-03-09 09:59] LABS: C Reactive Protein 242.44 mg/L (<8.01)
[2023-03-09 10:05] LABS: Erythrocyte Sed Rate 20 mm/Hr (0-14)
[2023-03-09] MEDS: Enoxaparin 40 MG/0.4 ML SYR SUBCUT SCH (13:05)
[2023-03-09] MEDS: Buprenorp/Nalox 2-0.5 mg SL TB SL SCH ×2 (13:33→23:57)
[2023-03-09] MEDS: LORazepam 2 mg VIAL 1 ml IV PUSH SCH (17:28)
[2023-03-09] MEDS: cefTRIAXone 1 gm/50 mL D5W 1 GM/50 ML BAG IV SCH (21:31)
[2023-03-09] MEDS: Magnesium Hydroxide LIQ 30 ML UDC G TUBE SCH (23:57)
[2023-03-10] MEDS: Chlorhexidine MOUTHWASH 0.12% 15 ML UDC TOPICAL SCH ×6 (01:54→22:50)
[2023-03-10] MEDS: Propofol 10 mg/ml 100 ML BTL 1,000 MG/100 ML BTL IV SCH ×4 (01:54→19:13)
[2023-03-10] MEDS ORDERED: LACTATED RINGERS 1000 ML BAG IV ONE (02:00)
[2023-03-10 05:18] LABS: Hematocrit 31.6 % (38-53); Hemoglobin 10.7 g/dL (13.2-16.3); Mean Corpuscular Hemoglobin 32.4 pg (27-33); Mean Corpuscular Hgb Conc 33.8 g/dL (31-36); Mean Corpuscular Volume 95.9 fL (80-97); Mean Platelet Volume 8.6 fL (7.5-11.2); Platelet Count 217 10^3/uL (150-450); Red Blood Count 3.29 10^6/uL (4.06-5.63); Red Cell Distribution Width 16.8 % (12-17); White Blood Count 7.5 10^3/uL (3.6-10.2)
[2023-03-10 05:33] LABS: Albumin 2.8 g/dL (3.2-5.2); Albumin/Globulin Ratio 1.1 (1-3); Calcium 8.2 mg/dL (8.6-10.3); Creatinine, Serum 0.72 mg/dL (0.67-1.17); Globulin 2.6 g/dL (2-4); Magnesium 1.9 mg/dL (1.9-2.7); Potassium 3.9 mmol/L (3.5-5.0); Total Bilirubin 0.3 mg/dL (0.2-1.0); Total Protein 5.4 g/dL (6.4-8.9); eGFR CKD-EPI 114.1 (>60)
[2023-03-10] MEDS ORDERED: Potassium Chloride LIQUID 20 MEQ/15 ML LIQUID PO ONE (05:48)
[2023-03-10] MEDS ORDERED: Vancomycin Trough Check NOTE FOLLOW UP ONE (06:00)
[2023-03-10] MEDS: Multivitamins ADULT w/MIN LIQ 15 ML UDC G TUBE SCH (08:00)
[2023-03-10] MEDS: Buprenorp/Nalox 2-0.5 mg SL TB SL SCH ×3 (08:00→20:32)
[2023-03-10] MEDS: Magnesium Hydroxide LIQ 30 ML UDC G TUBE SCH ×2 (08:00→20:32)
[2023-03-10] MEDS ORDERED: ceFAZolin 2 GM in NS PREMIX 2 GM/100 ML BAG IVPB SCH (08:00)
[2023-03-10] MEDS: Pantoprazole VIAL 40 MG VIAL IV SCH (08:00)
[2023-03-10] MEDS: Midazolam PREMIXBAG 1 MG/ML NS 100 ML IV SCH (08:25)
[2023-03-10] MEDS: Vancomycin 1000 MG in NS 0.9% 250 ML IVPB SCH ×3 (10:33→16:57)
[2023-03-10] MEDS ORDERED: Vancomycin per Pharmacy 1 EA NOTE FOLLOW UP SCH (11:00)
[2023-03-10] MEDS: Acetaminophen IV 1 GM/100ML 1,000 MG/100 ML BAG IV PRN ×2 (13:15→22:50)
[2023-03-10] MEDS: Enoxaparin 40 MG/0.4 ML SYR SUBCUT SCH (13:16)
[2023-03-11] MEDS: Chlorhexidine MOUTHWASH 0.12% 15 ML UDC TOPICAL SCH ×3 (01:44→09:47)
[2023-03-11] MEDS: Vancomycin 1000 MG in NS 0.9% 250 ML IVPB SCH ×3 (01:44→17:23)
[2023-03-11] MEDS: Propofol 10 mg/ml 100 ML BTL 1,000 MG/100 ML BTL IV SCH ×2 (02:18→06:46)
[2023-03-11] MEDS ORDERED: Midazolam 5 mg/5 ml VIAL 1 mg/ml 5 ml VIAL (5 mg) IV SLOW PU PRN (03:35)
[2023-03-11 04:26] LABS: Hematocrit 34.2 % (38-53); Hemoglobin 11.5 g/dL (13.2-16.3); Mean Corpuscular Hemoglobin 32.2 pg (27-33); Mean Corpuscular Hgb Conc 33.6 g/dL (31-36); Mean Corpuscular Volume 95.9 fL (80-97); Mean Platelet Volume 7.6 fL (7.5-11.2); Platelet Count 352 10^3/uL (150-450); Red Blood Count 3.56 10^6/uL (4.06-5.63); Red Cell Distribution Width 16.4 % (12-17); White Blood Count 6.2 10^3/uL (3.6-10.2)
[2023-03-11 04:52] LABS: ALT 46 U/L (7-52); AST 31 U/L (13-39); Albumin 2.8 g/dL (3.2-5.2); Albumin/Globulin Ratio 1.1 (1-3); Alkaline Phosphatase 109 U/L (35-149); Anion Gap 5 mmol/L (2-16); Blood Urea Nitrogen 9 mg/dL (6-24); CO2 Carbon Dioxide 29 mmol/L (22-32); Calcium 8.5 mg/dL (8.6-10.3); Chloride 104 mmol/L (101-111); Creatinine, Serum 0.71 mg/dL (0.67-1.17); Globulin 2.6 g/dL (2-4); Glucose 103 mg/dL (70-100); Potassium 4.1 mmol/L (3.5-5.0); Sodium 138 mmol/L (135-145); Total Bilirubin 0.3 mg/dL (0.2-1.0); Total Protein 5.4 g/dL (6.4-8.9); eGFR CKD-EPI 114.6 (>60)
[2023-03-11 08:23] LABS: Lipase < 10 U/L (11.0-82.0)
[2023-03-11] MEDS: Multivitamins ADULT w/MIN LIQ 15 ML UDC G TUBE SCH (08:40)
[2023-03-11] MEDS: Pantoprazole VIAL 40 MG VIAL IV SCH (08:40)
[2023-03-11] MEDS: Buprenorp/Nalox 2-0.5 mg SL TB SL SCH ×3 (08:40→20:36)
[2023-03-11] MEDS: Magnesium Hydroxide LIQ 30 ML UDC G TUBE SCH (09:46)
[2023-03-11] MEDS ORDERED: Magnesium Hydroxide LIQ 30 ML UDC PO PRN (11:48)
[2023-03-11] MEDS: Enoxaparin 40 MG/0.4 ML SYR SUBCUT SCH (14:33)
[2023-03-11] MEDS: Acetaminophen IV 1 GM/100ML 1,000 MG/100 ML BAG IV PRN (23:19)
[2023-03-12] MEDS: Vancomycin 1000 MG in NS 0.9% 250 ML IVPB SCH ×3 (01:15→17:41)
[2023-03-12 05:01] LABS: Hematocrit 34.1 % (38-53); Hemoglobin 11.8 g/dL (13.2-16.3); Mean Corpuscular Hemoglobin 32.5 pg (27-33); Mean Corpuscular Hgb Conc 34.4 g/dL (31-36); Mean Corpuscular Volume 94.3 fL (80-97); Mean Platelet Volume 7.1 fL (7.5-11.2); Platelet Count 476 10^3/uL (150-450); Red Blood Count 3.62 10^6/uL (4.06-5.63); Red Cell Distribution Width 16.1 % (12-17)
[2023-03-12 05:45] LABS: Albumin 3.3 g/dL (3.2-5.2); Albumin/Globulin Ratio 1.1 (1-3); Calcium 8.9 mg/dL (8.6-10.3); Creatinine, Serum 0.75 mg/dL (0.67-1.17); Globulin 2.9 g/dL (2-4); Potassium 4.1 mmol/L (3.5-5.0); Total Bilirubin 0.3 mg/dL (0.2-1.0); Total Protein 6.2 g/dL (6.4-8.9); eGFR CKD-EPI 112.7 (>60)
[2023-03-12] MEDS: Acetaminophen IV 1 GM/100ML 1,000 MG/100 ML BAG IV PRN (09:54)
[2023-03-12] MEDS: Pantoprazole VIAL 40 MG VIAL IV SCH (10:04)
[2023-03-12] MEDS: Buprenorp/Nalox 4-1 MG FILM SL SCH ×3 (10:04→21:25)
[2023-03-12] MEDS: Multivitamins ADULT w/MIN LIQ 15 ML UDC PO SCH (11:35)
[2023-03-12] MEDS: Multivitamins/Minerals TAB PO SCH (11:51)
[2023-03-12] MEDS: Enoxaparin 40 MG/0.4 ML SYR SUBCUT SCH (13:59)
[2023-03-13] MEDS: Vancomycin 1000 MG in NS 0.9% 250 ML IVPB SCH ×3 (02:20→18:03)
[2023-03-13 04:32] LABS: Hematocrit 32.6 % (38-53); Hemoglobin 11.1 g/dL (13.2-16.3); Mean Corpuscular Hemoglobin 32.1 pg (27-33); Mean Corpuscular Hgb Conc 34.1 g/dL (31-36); Mean Corpuscular Volume 94.1 fL (80-97); Mean Platelet Volume 6.5 fL (7.5-11.2); Platelet Count 482 10^3/uL (150-450); Red Blood Count 3.47 10^6/uL (4.06-5.63); White Blood Count 7.2 10^3/uL (3.6-10.2)
[2023-03-13 05:10] LABS: Creatinine, Serum 0.73 mg/dL (0.67-1.17); Magnesium 1.9 mg/dL (1.9-2.7); Potassium 3.8 mmol/L (3.5-5.0); eGFR CKD-EPI 113.6 (>60)
[2023-03-13] MEDS: Buprenorp/Nalox 4-1 MG FILM SL SCH ×3 (08:12→19:20)
[2023-03-13] MEDS: Multivitamins/Minerals TAB PO SCH (08:12)
[2023-03-13] MEDS: Pantoprazole VIAL 40 MG VIAL IV SCH (08:12)
[2023-03-13] MEDS: Multivitamins ADULT w/MIN LIQ 15 ML UDC PO SCH (08:22)
[2023-03-13] MEDS ORDERED: Vancomycin Trough Check NOTE FOLLOW UP ONE (09:30)
[2023-03-13 11:10] LABS: Creatinine, Serum 0.73 mg/dL (0.67-1.17); Vancomycin Trough 17.7 mcg/mL; eGFR CKD-EPI 113.6 (>60)
[2023-03-13] MEDS: Enoxaparin 40 MG/0.4 ML SYR SUBCUT SCH (13:35)
[2023-03-14] MEDS: Vancomycin 1000 MG in NS 0.9% 250 ML IVPB SCH (01:31)
[2023-03-14 05:02] LABS: Hematocrit 31.8 % (38-53); Hemoglobin 10.9 g/dL (13.2-16.3); Mean Corpuscular Hemoglobin 32.4 pg (27-33); Mean Corpuscular Hgb Conc 34.4 g/dL (31-36); Mean Corpuscular Volume 94.2 fL (80-97); Mean Platelet Volume 6.7 fL (7.5-11.2); Platelet Count 541 10^3/uL (150-450); Red Blood Count 3.38 10^6/uL (4.06-5.63); Red Cell Distribution Width 16.2 % (12-17); White Blood Count 8.1 10^3/uL (3.6-10.2)
[2023-03-14 05:28] LABS: Calcium 8.9 mg/dL (8.6-10.3); Creatinine, Serum 0.73 mg/dL (0.67-1.17); Potassium 3.8 mmol/L (3.5-5.0); eGFR CKD-EPI 113.6 (>60)
[2023-03-14] MEDS: Multivitamins/Minerals TAB PO SCH (07:51)
[2023-03-14] MEDS: Buprenorp/Nalox 4-1 MG FILM SL SCH (07:52)
[2023-03-14 07:58] LABS: ABS Eosinophils 0.3 10^3/uL (0.0-0.5); ABS Lymphocytes 2.8 10^3/uL (1.0-4.8); ABS Monocytes 1.1 10^3/uL (0.0-1.1); ABS Neutrophils 3.8 10^3/uL (1.5-7.6); ABS Nucleated RBC 0.01 10^3/ul; Anisocytosis 1+; Eosinophil % 3.1 %; Lymphocyte % 34.3 %; Nucleated Red Blood Cells % 0.1 %/100WBC (0.0-0.8)
[2023-03-14] MEDS ORDERED: Pneumococcal Vac 23-Polyvalent IM ONE (09:00)
[2023-03-14 09:54] VITALS: BP 146/92
== END 2023-03-14 10:00 | disposition home or self-care (01) | DRG 773 ==
LOC: ED 22:17 → SUATTDRO 03-06 01:37 → EDHOLD 03-06 01:37 → ICU 03-06 02:49
PROVIDERS: ADMIT Internal Medicine; ATTEND Internal Medicine Pulmonary Disease